=== PATIENT | female | born 1940 | race Caucasian/White ===

== ENCOUNTER 2020-03-19 11:41 | Outpatient (CLI) | payer MEDICARE, SELFPAY ==
[2020-03-19 13:12] LABS: Erythrocyte Sedimentation Rate 26 mm/hr (0-20)
[2020-03-19 13:29] LABS: Rheumatoid Factor Screen Negative (Negative)
[2020-03-21 12:04] LABS: Angiotensin Converting Enzyme 9 U/L (9-67)
[2020-03-22 07:56] LABS: SS-A <1.0; SS-B <1.0; Scleroderma 70 Antibody <1.0
[2020-03-22 11:13] LABS: ANCA Screen Negative (Negative)
== END 2020-03-19 11:42 | disposition home or self-care (01) ==
PROVIDERS: PCP Family Medicine; Visit Provider Internal Medicine Pulmonary Disease
DX: I27.20 Pulmonary hypertension, unspecified (principal)
CPT/HCPCS: 36415; 82164; 85652; 86021; 86038; 86235; 86430

== ENCOUNTER 2020-03-25 10:09 | Outpatient (CLI) | payer MEDICARE, SELFPAY ==
--- NOTE | ~2020-03-25 | CT_ITS ---
EXAMINATION: CTA chest PE protocol EXAM DATE: 03/25/2020 11:19 INDICATION: Shortness of breath. TECHNIQUE: Spiral CTA of the chest (pulmonary arteries) was performed with 100 cc Omnipaque 350 intr avenous contrast injection. Images were acquired during the pulmonary arterial phase. Coronal maxi mum intensity projection 3D-reconstructions were created by the technologist on dedicated workstation . Axial, coronal and sagittal reformatted images were reviewed. The dose-length product (DLP) for t his examination was 239.52 mGy-cm. The exposure was tailored according to patient size (auto mA exp osure control), and iterative reconstruction (ASIR) was used as additional dose reduction technique. There is no prior study for comparison. FINDINGS: There are several nonocclusive small filling defects which are adherent to the prieto of ri ght lower lobe intralobar pulmonary artery extending into couple of segmental vessels. Appearance is consistent with subacute age, partial reabsorption/endothelialization. No corresponding pulmonary inf arction. No evidence of acute pulmonary emboli. No thoracic aortic dissection. The lungs are clear . There are no pleural or pericardial effusions. Tracheobronchial tree is patent. There is no m ediastinal, hilar or axillary lymphadenopathy. There is no pneumothorax. There is cardiomegaly. There is mild coronary arterial calcification, arterial sclerosis. Large gastroesophageal hiatal her sharifa. There is moderate thoracic spondylosis without osteoblastic or osteolytic lesions identified. There are cholecystectomy clips. IMPRESSION: 1. Positive for small subacute right lower lobe pulmonary emboli. 2. Cardiomegaly. 3. Mild emphysema 4. Large hiatal hernia. I spoke with Jessy in Dr. Song Sales M.D.'s office on 03/25/2020 11:40 CDT. Reviewed, dictated and finalized at location B.
[2020-03-25 10:42] LABS: Estimated Glomerular Filt Rate 36
== END 2020-03-25 10:10 | disposition home or self-care (01) ==
LOC: CHSIMG 10:12
PROVIDERS: PCP Family Medicine; Visit Provider Internal Medicine Pulmonary Disease
DX: J43.9 Emphysema, unspecified (principal); R06.02 Shortness of breath
CPT/HCPCS: 71275; Q9965

== ENCOUNTER 2020-04-24 12:13 | Outpatient (CLI) | payer MEDICARE, SELFPAY ==
--- NOTE | ~2020-04-24 | US_ITS ---
EXAMINATION: US venous doppler LE EXAM DATE: 04/24/2020 12:58 INDICATION: Pulmonary embolism. TECHNIQUE: Multiple grayscale, color flow and Doppler images of the right lower extremity deep venous system obtained and reviewed. Correlation is made to CTA pulmonary scan 03/25/2020. FINDINGS: RIGHT SIDE Common femoral: -------- Normal. Profunda femoral: ------- Normal. Femoral: Normal. Popliteal: Normal. Posterior tibial: --------- Normal. Peroneal: Paired, 1 thrombosed. Gastrocnemius: Not visualized. Soleus: Not visualized. Greater saphenous: ----- Normal. Lesser saphenous: ------ Not visualized. IMPRESSION: 1. Positive for right peroneal DVT. Reviewed, dictated and finalized at location A.
== END 2020-04-24 12:14 | disposition home or self-care (01) ==
LOC: CHSIMG 12:15
PROVIDERS: PCP Family Medicine; Visit Provider Internal Medicine Pulmonary Disease
DX: I26.99 Other pulmonary embolism without acute cor pulmonale (principal); M79.89 Other specified soft tissue disorders
CPT/HCPCS: 93970

== ENCOUNTER 2020-07-11 10:47 | Outpatient (CLI) | payer MEDICARE, SELFPAY | END 2020-07-11 10:48 | disposition home or self-care (01) | LOC: CHSLAB 10:49 | PROVIDERS: PCP Family Medicine; Visit Provider Family Medicine | DX: Z79.01 Long term (current) use of anticoagulants (principal) | CPT/HCPCS: 36415; 85610 ==

== ENCOUNTER 2020-07-18 12:14 | Outpatient (RCR) | payer MEDICARE, SELFPAY ==
[2020-04-29 10:43] LABS: INR 3.1; Prothrombin Time 30.5 Seconds (9.64-11.0)
[2020-05-13 10:55] LABS: INR 1.4; Prothrombin Time 14.7 Seconds (9.64-11.0)
[2020-06-13 12:52] LABS: INR 1.7; Prothrombin Time 16.9 Seconds (9.64-11.0)
[2020-06-20 12:52] LABS: INR 1.6; Prothrombin Time 16.5 Seconds (9.64-11.0)
[2020-06-26 10:18] LABS: Prothrombin Time 49.3 Seconds (9.64-11.0)
[2020-07-18 12:41] LABS: INR 3.4; Prothrombin Time 33.8 Seconds (9.64-11.0)
== END 2020-07-28 23:59 | disposition home or self-care (01) ==
LOC: CHSLAB 12:14
PROVIDERS: PCP Family Medicine; Visit Provider Internal Medicine Pulmonary Disease
DX: Z79.01 Long term (current) use of anticoagulants (principal)
CPT/HCPCS: 36415; 85610

== ENCOUNTER 2020-09-12 12:09 | Outpatient (CLI) | payer MEDICARE, SELFPAY ==
--- NOTE | 2020-09-12 12:23 | ECHO_ITS ---
Patient Info Name: Lu Galeano Age: 80 years : 1940 Gender: Female Ht: 59 in Wt: 140 lbs BSA: 1.65 m2 HR: 52 bpm BP: 165 / 65 mmHg Heart Rhythm: Sinus Rhythm Technical Quality: Fair Exam Date: 09/12/2020 12:26 PM Exam Location: [facility] Patient Status: Outpatient Admit Date: 09/12/2020 Staff Ordering Physician: Bunny Perez MD Funeral Pre Need Consultant: Mary Armstrong RDCS Attending Provider: Bunny Perez MD Referring Physician: Ana PARRISH; Exam Type: CA echo doppler color flow Study Info Indications Z86.71 - Personal history of venous thrombosis and embolism I27.2 - Other secondary pulmonary hypertension I25.10 - Atherosclerotic heart disease of [place] coronary artery without angina pectoris Complete two-dimensional, color flow and Doppler transthoracic echocardiogram is performed. Strain analysis performed. History/Risk Factors Hypertension: Yes Dyslipidemia: Yes Peripheral Arterial Disease (PAD): No Myocardial Infarction (ND): Yes Chronic Lung Disease: No Renal Disease: No Congestive Heart Failure (CHF): Hx CHF Cardiomyopathy/LV Systolic Dysfunction: No Diabetes Mellitus: No COPD: No Tobacco Use: Never Cerebrovascular Disease: No DVT Treatment: Warfarin Deep Vein Thrombosis (DVT): Acute Dialysis: None Frailty Scale (CSHA): 3: Managing Well Summary 1. Complete two-dimensional, color flow and Doppler transthoracic echocardiogram is performed. 2. Left ventricular chamber dimension is normal. 3. Ventricular septum is sigmoid shaped. Resting LVOT peak gradient is 7 mmHg and mean is 2 mmHg which are non-obstructive. 4. Left ventricular systolic function is hyperdynamic, estimated at >70%. 5. The left ventricular diastolic function is grade I diastolic dysfunction. 6. E/e' 25 is significantly elevated. 7. Global longitudinal strain is normal at -30.7%. 8. Left atrial chamber dimension is mildly enlarged. 9. There is mild aortic valve sclerosis. 10. The mitral valve has severely calcified annulus. 11. Mild systolic anterior motion of mitral valve leaflet. 12. There is moderate tricuspid valve regurgitation. 13. Severe pulmonary hypertension, estimated pulmonary arterial systolic pressure is 69 mmHg. 14. There is trace pulmonic regurgitation. Left Ventricle E/e' 25 is significantly elevated. Global longitudinal strain is normal at -30.7%. Ventricular septum is sigmoid shaped. Resting LVOT peak gradient is 7 mmHg and mean is 2 mmHg which are non-obstructive. Left ventricular chamber dimension is normal. Left ventricular systolic function is hyperdynamic, estimated at >70%. The left ventricular diastolic function is grade I diastolic dysfunction. Right Ventricle Moderator band in RV is normal variant. Right ventricular chamber dimension is normal. Right ventricular systolic function is normal. Left Atria Left atrial chamber dimension is mildly enlarged. Right Atria Right atrial chamber dimension is normal. Aortic Valve The aortic valve is trileaflet. There is mild aortic valve sclerosis. There is no aortic valve stenosis. There is no aortic valve regurgitation. Pulmonic Valve There is trace pulmonic regurgitation. Mitral Valve The mitral valve has severely calcified annulus. Mild systolic anterior motion of mitral valve leaflet. There is no mitral valve stenosis. There is no mitral valve regurgitation. Tricuspid Valve There is moder
== END 2020-09-12 12:10 | disposition home or self-care (01) ==
LOC: CHSIMG 12:10
PROVIDERS: PCP Family Medicine; Visit Provider Internal Medicine Cardiovascular Disease
DX: I25.10 Atherosclerotic heart disease of native coronary artery without angina pectoris (principal); I27.20 Pulmonary hypertension, unspecified; Z86.711 Personal history of pulmonary embolism
CPT/HCPCS: 93306

== ENCOUNTER 2020-09-24 09:16 | Outpatient (RCR) | payer MEDICARE, SELFPAY ==
[2020-07-25 10:24] LABS: Prothrombin Time 29.9 Seconds (9.64-11.0)
[2020-08-21 10:54] LABS: Prothrombin Time 30.8 Seconds (9.50-12.10)
[2020-09-05 10:38] LABS: INR 2.4; Prothrombin Time 25.1 Seconds (9.50-12.10)
[2020-09-24 09:48] LABS: INR 3.8; Prothrombin Time 39.2 Seconds (9.50-12.10)
== END 2020-10-23 23:59 | disposition home or self-care (01) ==
LOC: CHSLAB 09:16
PROVIDERS: PCP Family Medicine; Visit Provider Internal Medicine Pulmonary Disease
DX: Z79.01 Long term (current) use of anticoagulants (principal)
CPT/HCPCS: 36415; 85610

== ENCOUNTER 2020-12-10 12:58 | Outpatient (CLI) | payer MEDICARE, SELFPAY | END 2020-12-10 12:59 | disposition home or self-care (01) | PROVIDERS: PCP Family Medicine; Visit Provider Specialist | DX: C44.311 Basal cell carcinoma of skin of nose (principal) | CPT/HCPCS: 88305 ==

== ENCOUNTER 2020-12-24 09:33 | Outpatient (RCR) | payer MEDICARE, SELFPAY ==
[2020-10-02 14:56] LABS: INR 3.3; Prothrombin Time 34.5 Seconds (9.50-12.10)
[2020-10-02 15:58] LABS: Thyroid Stimulating Hormone Reflex 1.29 u/IU/mL (0.36-3.74)
[2020-10-11 11:05] LABS: Prothrombin Time 21.7 Seconds (9.64-11.0)
[2020-10-17 10:41] LABS: INR 2.1; Prothrombin Time 22.3 Seconds (9.50-12.10)
[2020-10-24 10:44] LABS: INR 1.8
[2020-10-31 10:38] LABS: INR 2.7; Prothrombin Time 27.7 Seconds (9.50-12.10)
[2020-11-18 10:59] LABS: Prothrombin Time 30.1 Seconds (9.50-12.10)
[2020-11-28 12:17] LABS: INR 2.9; Prothrombin Time 29.7 Seconds (9.50-12.10)
[2020-12-24 09:57] LABS: INR 2.3; Prothrombin Time 23.2 Seconds (9.50-12.10)
== END 2020-12-31 23:59 | disposition home or self-care (01) ==
LOC: CHSLAB 09:33
PROVIDERS: PCP Family Medicine; Visit Provider Family Medicine
DX: I82.432 Acute embolism and thrombosis of left popliteal vein (principal); E03.9 Hypothyroidism, unspecified
CPT/HCPCS: 36415; 84443; 85610

== ENCOUNTER 2021-01-18 09:39 | Outpatient (CLI) | payer MEDICARE, SELFPAY ==
--- NOTE | ~2021-01-18 | MR_ITS ---
EXAMINATION: MR lumbar spine wo con DATE: 01/18/2021 10:20 INDICATION: Low back pain. Spinal stenosis. TECHNIQUE: Magnetic resonance imaging (MRI) of the lumbar spine was performed without intravenous con trast. Sequences included sagittal T2-weighted FSE, sagittal T2-weighted FS FSE, sagittal T1-weighted FSE, and axial T2-weighted FSE. COMPARISON: None FINDINGS: There is 8 degrees dextrocurvature of lumbar spine. There is 3 mm retrolisthesis of L1 on L 2, L2 on L3, and L5 on S1 and 4 mm anterolisthesis of L4 on L5. There is mild chronic anterior wedgin g of T11-L1 vertebral bodies. There is severely decreased disc height at T11-T12, T12-L1, and L1-L2, moderately decreased disc height from L2-L3 through L4-L5, and severely decreased disc height at L5-S 1 with endplate remodeling. The distal spinal cord signal intensity is normal. The conus medullaris i s at L1. There is a 1.6 cm cyst in right kidney. The following disc levels are specifically discussed : L1-L2: The disc is bulging with superimposed right central extrusion. There is severe right and moder ate left facet joint osteoarthritis. There is moderate bilateral neural foraminal stenosis. There is moderate central canal stenosis. L2-L3: The disc is bulging and has an annular fissure. There is severe bilateral facet joint osteoart hritis. There is moderate bilateral neural foraminal stenosis. There is moderate central canal stenos is. L3-L4: The disc is bulging and has an annular fissure. There is severe bilateral facet joint osteoart hritis. There is moderate bilateral neural foraminal stenosis. There is moderate central canal stenos is. L4-L5: The disc is bulging and has an annular fissure. There is severe bilateral facet joint osteoart hritis. There is moderate bilateral neural foraminal stenosis. There is moderate central canal stenos is. L5-S1: The disc is bulging and has an annular fissure. There is severe bilateral facet joint osteoart hritis. There is moderate bilateral neural foraminal stenosis. There is mild central canal stenosis. IMPRESSION: 1. Severe lumbar spondylosis. Reviewed, dictated and finalized at location A.
== END 2021-01-18 09:40 | disposition home or self-care (01) ==
LOC: CHSIMG 09:40
PROVIDERS: PCP Family Medicine; Visit Provider Nurse Practitioner Family
DX: M48.061 Spinal stenosis, lumbar region without neurogenic claudication (principal); M54.5 Low back pain
CPT/HCPCS: 72148

== ENCOUNTER 2021-02-05 15:28 | Outpatient (RCR) | payer MEDICARE, SELFPAY ==
--- NOTE | 2021-02-05 16:55 | PTOPEVAL ---
Thank you for referring Lu Galeano to [facility].? The patient is scheduled to be seen for therapy? __2__x/week for 12 visits. Please review, sign, date and return this plan of care AJ. I agree with and certify that the following plan of care is medically necessary. Referring Physician Date Admitting Provider: Attending Provider: Abiola Justin, GAMBRELER-BC Referring Provider: *PT Outpatient Evaluation Start: 02/05/21 15:43 Freq: Status: Active Protocol: Document 02/05/21 15:43 NILESH (Rec: 02/05/21 16:55 NILESH [id number]) Therapy Assessment Status Assessment Status Assessment Status Evaluation Evaluation Information Problem Diagnosis low back pain Onset 02/06/20 Subjective Information Pt notes a long hx of low back Query Text:As Reported By Patient/ pain. She reports that she Family is having trouble standing for any period of time. She describes her pain going across the low back. She notes that pain can be worst first thing in the morning. She reports that pain can be worse with simply walking around the yard. She reports that her goal is decrease her low back pain. Prior Level of Function Activity Level (Last 3 Months) Occupation retired Hand Dominance Right Activity of Daily Living Ability Independent Indoor/Home Mobility Independent Community Mobility Independent Stairs Ability Independent Functional Cognition (Planning, Shopping Independent , Taking Medications) Cooking Yes Cleaning Yes Laundry Yes Shopping Yes Driving Yes Comments Additional Prior Level of Function Pt. notes that she cannot Comments stand for any substantial time unless she has something to lean on. she reports that she can do grocery shopping as long as she can lean on a cart . Pain Assessment Timing of Pain Assessment Timing of Pain Assessment Pre-Treatment Pain Scale Pain Scale Used Numeric (1 - 10) Self Report Pain Assessment Lower Back Reported Pain Level 7 Pain Description Aching Pain Frequency Continuous Lowest Pain Intensity 3
== END 2021-03-21 23:59 | disposition home or self-care (01) ==
LOC: CHSPT 15:28
PROVIDERS: Visit Provider Nurse Practitioner Family
DX: M54.5 Low back pain (principal); M48.00 Spinal stenosis, site unspecified
CPT/HCPCS: 97014; 97110; 97140; 97161; G0283

== ENCOUNTER 2021-04-23 09:55 | Outpatient (RCR) | payer MEDICARE, SELFPAY ==
[2021-01-23 10:14] LABS: INR 1.9; Prothrombin Time 20.1 Seconds (9.50-12.10)
[2021-02-20 10:25] LABS: INR 4.1; Prothrombin Time 40.6 Seconds (9.50-12.10)
[2021-02-28 11:15] LABS: Prothrombin Time 56.2 Seconds (9.50-12.10)
[2021-02-28 11:22] LABS: INR 5.7
[2021-03-07 11:59] LABS: INR 1.4; Prothrombin Time 14.9 Seconds (9.50-12.10)
[2021-03-19 12:03] LABS: INR 2.9; Prothrombin Time 29.1 Seconds (9.50-12.10)
[2021-03-26 10:01] LABS: INR 2.8; Prothrombin Time 28.6 Seconds (9.50-12.10)
[2021-04-04 10:24] LABS: INR 2.7; Prothrombin Time 27.9 Seconds (9.50-12.10)
[2021-04-18 10:33] LABS: INR 3.7
[2021-04-23 10:38] LABS: Prothrombin Time 30.8 Seconds (9.50-12.10)
== END 2021-04-23 23:59 | disposition home or self-care (01) ==
LOC: CHSLAB 09:55
PROVIDERS: PCP Family Medicine; Visit Provider Family Medicine
DX: Z79.01 Long term (current) use of anticoagulants (principal)
CPT/HCPCS: 36415; 85610

== ENCOUNTER 2021-07-23 09:39 | Outpatient (RCR) | payer MEDICARE, SELFPAY ==
[2021-05-02 10:54] LABS: INR 3.6; Prothrombin Time 36.1 Seconds (9.50-12.10)
[2021-05-14 10:53] LABS: INR 2.5; Prothrombin Time 25.2 Seconds (9.50-12.10)
[2021-05-22 10:02] LABS: INR 3.1; Prothrombin Time 30.9 Seconds (9.50-12.10)
[2021-06-03 12:39] LABS: INR 4.8
[2021-06-12 10:49] LABS: INR 2.7; Prothrombin Time 27.1 Seconds (9.50-12.10)
[2021-06-25 10:01] LABS: INR 2.7; Prothrombin Time 27.4 Seconds (9.50-12.10)
[2021-07-02 12:08] LABS: INR 2.8; Prothrombin Time 28.8 Seconds (9.50-12.10)
[2021-07-23 10:18] LABS: INR 2.8; Prothrombin Time 28.1 Seconds (9.50-12.10)
== END 2021-07-31 23:59 | disposition home or self-care (01) ==
LOC: CHSLAB 09:39
PROVIDERS: PCP Family Medicine; Visit Provider Family Medicine
DX: Z79.01 Long term (current) use of anticoagulants (principal); I82.409 Acute embolism and thrombosis of unspecified deep veins of unspecified lower extremity
CPT/HCPCS: 36415; 85610

== ENCOUNTER 2021-08-26 10:00 | Outpatient (RCR) | payer MEDICARE, SELFPAY ==
[2021-08-07 10:48] LABS: INR 2.8; Prothrombin Time 28.6 Seconds (9.50-12.10)
[2021-08-26 10:34] LABS: INR 2.2; Prothrombin Time 22.2 Seconds (9.50-12.10)
== END 2021-11-05 23:59 | disposition home or self-care (01) ==
LOC: CHSLAB 10:00
PROVIDERS: PCP Family Medicine; Visit Provider Family Medicine
DX: I82.409 Acute embolism and thrombosis of unspecified deep veins of unspecified lower extremity (principal); Z79.01 Long term (current) use of anticoagulants
CPT/HCPCS: 36415; 85610

== ENCOUNTER 2021-09-10 10:29 | Outpatient (CLI) | payer MEDICARE, SELFPAY ==
[2021-09-10 10:41] LABS: Basophils Absolute Auto 0.04 K/mm3 (0.00-0.10); Basophils Percent Auto 0.6 % (0.0-1.0); Eosinophils Absolute Auto 0.35 K/mm3 (0.02-0.50); Hematocrit 35.4 % (35.0-42.0); Hemoglobin 11.5 g/dL (11.7-13.8); Immature Granulocyte Absolute 0.01 K/mm3 (0.00-0.00); Immature Granulocyte Percent A 0.1 % (0.0-0.0); Lymphocytes Absolute Auto 1.11 K/mm3 (1.10-4.50); Lymphocytes Percent Auto 15.7 % (18.0-42.0); Mean Corpuscular HGB Conc 32.5 g/dL (32.0-36.0); Mean Corpuscular Hemoglobin 29.3 pg (27.0-31.0); Mean Corpuscular Volume 90.3 fL (78.0-102.0); Mean Platelet Volume 10.3 fl (9.2-11.8); Monocytes Absolute Auto 0.56 K/mm3 (0.10-0.90); Monocytes Percent Auto 7.9 % (2.0-11.0); Neutrophils Percent Auto 70.7 % (50.0-70.0); Platelet Count Result 251 K/mm3 (150-420); Red Blood Count 3.92 M/mm3 (4.20-5.40); Red Cell Distribution Width 14.6 % (11.6-14.4); White Blood Count 7.1 K/mm3 (4.8-10.8)
[2021-09-10 10:59] LABS: INR 2.6
[2021-09-10 11:40] LABS: Alanine Aminotransferase 14 U/L (14-59); Albumin Level 3.1 g/dL (3.4-5.0); Alkaline Phosphatase 114 U/L (46-116); Anion Gap 8 mmol/L (8-16); Aspartate Amino Transferase 15 U/L (15-37); Bilirubin,Total 0.4 mg/dL (0.00-1.00); Blood Urea Nitrogen 32 mg/dL (7-18); Calcium 8.5 mg/dL (8.5-10.1); Carbon Dioxide 24 mmol/L (21-32); Chloride 110 mmol/L (98-108); Cholesterol 139 mg/dL (0-200); Estimated Glomerular Filt Rate 31; Glucose 96 mg/dL (70-99); HDL Direct 54 mg/dL (40-60); LDL Cholesterol Calculated 61 mg/dL (<130); Osmolality Calculated 300 mOsm/kg (285-295); Potassium 5.5 mmol/L (3.5-5.1); Sodium 142 mmol/L (136-145); Total Protein 6.2 g/dL (6.4-8.2); Triglycerides 120 mg/dL (0-150)
[2021-09-10 11:41] LABS: Thyroid Stimulating Hormone Reflex 1.42 u/IU/mL (0.36-3.74)
== END 2021-09-10 10:30 | disposition home or self-care (01) ==
LOC: CHSLAB 10:31
PROVIDERS: PCP Family Medicine; Visit Provider Family Medicine
DX: I82.409 Acute embolism and thrombosis of unspecified deep veins of unspecified lower extremity (principal); I10 Essential (primary) hypertension; E03.9 Hypothyroidism, unspecified; E78.5 Hyperlipidemia, unspecified
CPT/HCPCS: 36415; 80053; 80061; 84443; 85025; 85610

== ENCOUNTER 2021-09-17 11:48 | Outpatient (CLI) | payer MEDICARE, SELFPAY ==
[2021-09-17 12:19] LABS: INR 2.1; Prothrombin Time 21.9 Seconds (9.50-12.10)
[2021-09-17 13:03] LABS: Alanine Aminotransferase 25 U/L (14-59); Albumin Level 3.2 g/dL (3.4-5.0); Alkaline Phosphatase 112 U/L (46-116); Anion Gap 11 mmol/L (8-16); Aspartate Amino Transferase 15 U/L (15-37); Bilirubin,Total 0.3 mg/dL (0.00-1.00); Blood Urea Nitrogen 37 mg/dL (7-18); Calcium 8.9 mg/dL (8.5-10.1); Carbon Dioxide 23 mmol/L (21-32); Chloride 108 mmol/L (98-108); Estimated Glomerular Filt Rate 26; Glucose 97 mg/dL (70-99); Osmolality Calculated 302 mOsm/kg (285-295); Potassium 5.5 mmol/L (3.5-5.1); Sodium 142 mmol/L (136-145); Thyroid Stimulating Hormone 1.19 uIU/mL (0.36-3.74); Total Protein 6.3 g/dL (6.4-8.2)
[2021-09-19 19:33] LABS: Vitamin D 25 Hydroxy 44 ng/mL (30-100)
== END 2021-09-17 11:49 | disposition home or self-care (01) ==
LOC: CHSLAB 11:49
PROVIDERS: PCP Family Medicine; Visit Provider Nurse Practitioner Family
DX: E87.5 Hyperkalemia (principal); E03.9 Hypothyroidism, unspecified; Z79.01 Long term (current) use of anticoagulants; Z79.899 Other long term (current) drug therapy
CPT/HCPCS: 36415; 80053; 82306; 84439; 84443; 85610

== ENCOUNTER 2021-09-24 10:18 | Outpatient (CLI) | payer MEDICARE, SELFPAY ==
[2021-09-24 10:51] LABS: INR 2.2
[2021-09-24 11:24] LABS: Alanine Aminotransferase 14 U/L (14-59); Albumin Level 3.4 g/dL (3.4-5.0); Alkaline Phosphatase 116 U/L (46-116); Anion Gap 10 mmol/L (8-16); Aspartate Amino Transferase 19 U/L (15-37); Bilirubin,Total 0.4 mg/dL (0.00-1.00); Blood Urea Nitrogen 34 mg/dL (7-18); Calcium 8.7 mg/dL (8.5-10.1); Carbon Dioxide 23 mmol/L (21-32); Chloride 110 mmol/L (98-108); Estimated Glomerular Filt Rate 26; Glucose 99 mg/dL (70-99); Osmolality Calculated 303 mOsm/kg (285-295); Potassium 5.3 mmol/L (3.5-5.1); Sodium 143 mmol/L (136-145); Total Protein 6.4 g/dL (6.4-8.2)
== END 2021-09-24 10:19 | disposition home or self-care (01) ==
PROVIDERS: PCP Family Medicine; Visit Provider Nurse Practitioner Family
DX: Z79.01 Long term (current) use of anticoagulants (principal); I82.409 Acute embolism and thrombosis of unspecified deep veins of unspecified lower extremity
CPT/HCPCS: 36415; 80053; 85610

== ENCOUNTER 2021-09-26 11:12 | Inpatient (IN) | payer MEDICARE, SELFPAY ==
[2021-09-26] VITALS (7 sets, daily range): BP systolic 153–187; BP diastolic 59–71; PULSE 52–66; RESP 16–18; TEMP 35.6–36.8; O2SAT 90–100; BMI 28.7
--- NOTE | ~2021-09-26 | CT_ITS ---
EXAMINATION: CT abdomen pelvis wo con DATE: 09/27/2021 08:39 INDICATION: Low abdominal pain. TECHNIQUE: Computed tomography (CT) of the abdomen and pelvis was performed without intravenous contr ast. Automated exposure control and iterative reconstruction technique were employed. The dose-length product was 715.88 mGy-cm. COMPARISON: CT abdomen and pelvis 06/14/2018 FINDINGS: The visualized portions of the lung bases demonstrate mild atelectasis. There is peripheral septal thickening in the lungs. There are small pleural effusions. Cardiomegaly is noted. There are coronary artery calcifications. No pericardial effusion. There is a large sliding hiatal hernia. The liver and spleen are normal. There are changes of cholecystectomy. The pancreas and adrenal glands ar e normal. There are is cortical thinning of the kidneys. There is a 1.7 cm cyst in right kidney. Ther e is no urolithiasis. There is diverticulosis of the colon without evidence of diverticulitis. There are no dilated loops of bowel. The appendix is normal. There are no pathologically enlarged lymph nod es. There is no free intraperitoneal fluid. Pelvic floor relaxation is noted. There is severe thoraci c and lumbar spondylosis. IMPRESSION: 1. Large sliding hiatal hernia. 2. Pelvic floor relaxation. 3. Small pleural effusions. 4. Peripheral septal thickening in the lungs, consistent with mild pulmonary edema and/or mild chroni c interstitial lung disease. 5. Cardiomegaly. Reviewed, dictated and finalized at location A. ISITIONS ASSISTANT IMPRESSION: 1. Large sliding hiatal hernia. 2. Pelvic floor relaxation. 3. Small pleural effusions. 4. Peripheral septal thickening in the lungs, consistent with mild pulmonary ed danya and/or mild chronic interstitial lung disease. 5. Cardiomegaly.
--- NOTE | ~2021-09-26 | XR_ITS ---
EXAMINATION: XR chest 2V DATE: 09/26/2021 13:27 INDICATION: Dyspnea. TECHNIQUE: Frontal and lateral views of the chest were obtained. COMPARISON: Chest 2 views 10/18/19, chest CT 03/25/2020 FINDINGS: There are airspace opacities in right lower lung zone and left mid and lower lung zones. No pleural effusion or pneumothorax. Cardiomegaly is noted. There is a large hiatal hernia. There are s urgical clips in the abdomen. IMPRESSION: 1. Stable mild airspace opacities in right lower lung zone and left mid and lower lung zones, likely atelectasis/scarring. 2. Cardiomegaly. 3. Large hiatal hernia. Reviewed, dictated and finalized at location A. RINARY LABORATORY DIAGNOSTICIAN IMPRESSION: 1. Stable mild airspace opacities in right lower lung zone and left mid and low er lung zones, likely atelectasis/scarring. 2. Cardiomegaly. 3. Large hiatal hernia.
--- NOTE | 2021-09-26 11:28 | ECG_ITS ---
Measurements Intervals [place] Rate: 53 P: 25 VA: 173 QRS: 24 QRSD: 91 T: 67 QT: 409 QTc: 384 Interpretive Statements SINUS BRADYCARDIA CANNOT RULE OUT SEPTAL INFARCT, AGE INDETERMINATE ABNORMAL ECG Electronically Signed On 09-26-2021 14:55:09 PCI SECURITY CONSULTANT by Phil Gilbert D.O.
[2021-09-26 12:05] LABS: Basophils Absolute Auto 0.02 K/mm3 (0.00-0.10); Basophils Percent Auto 0.2 % (0.0-1.0); Eosinophils Absolute Auto 0.26 K/mm3 (0.02-0.50); Eosinophils Percent Auto 3.2 % (1.0-6.0); Hematocrit 35.8 % (35.0-42.0); Hemoglobin 11.4 g/dL (11.7-13.8); Immature Granulocyte Absolute 0.03 K/mm3 (0.00-0.00); Immature Granulocyte Percent A 0.4 % (0.0-0.0); Lymphocytes Absolute Auto 0.71 K/mm3 (1.10-4.50); Lymphocytes Percent Auto 8.8 % (18.0-42.0); Mean Corpuscular HGB Conc 31.8 g/dL (32.0-36.0); Mean Corpuscular Hemoglobin 29.2 pg (27.0-31.0); Mean Corpuscular Volume 91.8 fL (78.0-102.0); Mean Platelet Volume 10.8 fl (9.2-11.8); Monocytes Absolute Auto 0.52 K/mm3 (0.10-0.90); Monocytes Percent Auto 6.4 % (2.0-11.0); Neutrophils Absolute Auto 6.6 K/mm3 (1.7-7.2); Platelet Count Result 220 K/mm3 (150-420); Red Cell Distribution Width 14.6 % (11.6-14.4); White Blood Count 8.1 K/mm3 (4.8-10.8)
[2021-09-26 12:17] LABS: INR 2.1; Partial Thromboplastin Time 36.4 SEC (23.90-30.70); Prothrombin Time 22.1 Seconds (9.50-12.10)
[2021-09-26 12:21] LABS: D Dimer 0.54 mg/L (0.19-0.50)
--- NOTE | 2021-09-26 12:21 | PC.NURSE ---
Dr. Jose Carlos MILAN made aware of critical lab of D[place] 0.54
[2021-09-26 12:27] LABS: Alanine Aminotransferase 12 U/L (14-59); Albumin Level 3.2 g/dL (3.4-5.0); Alkaline Phosphatase 111 U/L (46-116); Anion Gap 10 mmol/L (8-16); Aspartate Amino Transferase 15 U/L (15-37); Bilirubin,Total 0.5 mg/dL (0.00-1.00); Blood Urea Nitrogen 35 mg/dL (7-18); Calcium 8.6 mg/dL (8.5-10.1); Carbon Dioxide 21 mmol/L (21-32); Chloride 109 mmol/L (98-108); Estimated Glomerular Filt Rate 25; Glucose 102 mg/dL (70-99); NT Pro B Type Natriuretic Pept 1248 pg/mL (0-450); Osmolality Calculated 298 mOsm/kg (285-295); Potassium 5.4 mmol/L (3.5-5.1); Sodium 140 mmol/L (136-145); Total Protein 6.5 g/dL (6.4-8.2)
[2021-09-26 12:45] LABS: SARS-CoV-2 RNA PCR Negative (Negative)
--- NOTE | 2021-09-26 13:43 | ED.SOB ---
HPI - SOB/Dyspnea General Chief Complaint: Abdominal Pain Stated Complaint: upset stomach,shakes Source: patient Mode of arrival: ambulatory Limitations: no limitations History of Present Illness HPI Narrative: this is an 81-year-old female presents with some vague symptoms, weakness with some shortness of breath with exertion no shortness of breath with resting. With no abdominal pain no chest pain no dysuria no flank pain no fever chills no nausea vomiting. Patient with history of lower extremity DVT currently on Coumadin and is therapeutic with an INR of 2.1. Patient with history of hypertension, hypothyroidism and hypertension. MD elicited complaint: shortness of breath Onset (ago): hour(s) Context: occurred during exertion Timing: constant Severity: moderate Exacerbating factors: exertion Related Data Home Medications Medication Instructions Recorded Confirmed aspirin 81 mg tablet,delayed 81 mg PO DAILY 10/18/19 09/26/21 release calcium carbonate 600 mg-vitamin 1 tablet PO BID 10/18/19 09/26/21 D3 20 mcg (800 unit) chewable tablet clonidine HCl 0.1 mg tablet 0.1 mg PO BID tablet 10/18/19 09/26/21 cranberry 400 mg capsule 400 mg PO DAILY 10/18/19 09/26/21 glucosamine-chondroitin 250 mg-200 2 tablet PO TID 10/18/19 09/26/21 mg tablet omega 9-fqj-xfo-fish oil 300 1 cap PO DAILY 10/18/19 09/26/21 mg-1,000 mg capsule omeprazole magnesium 20 mg 20 mg PO DAILY 10/18/19 09/26/21 tablet,delayed release meloxicam 15 mg tablet 15 mg PO DAILY tablet 05/15/21 09/26/21 Allergies Allergy/AdvReac Type Severity Reaction Status Date / Time fentanyl Allergy Intermediate Unknown Verified 09/26/21 11:38 tramadol Allergy Intermediate Unknown Verified 09/26/21 11:38 adhesive Allergy Mild Unknown Verified 09/26/21 11:38 Sulfa (Sulfonamide Allergy Mild unknown Verified 09/26/21 11:38 Antibiotics) Sulfonamides Allergy Intermediate Unknown Uncoded 09/17/21 11:07 Review of Systems Review of Systems: All systems reviewed & are unremarkable except as noted in HPI and below PMFSH Past Medical History Medical History Abnormality of gait and mobility Chronic diarrhea CKD (chronic kidney disease) stage 3, GFR 30-59 ml/min Congestive heart failure (CHF) DVT (deep venous thrombosis) Hyperlipidemia Hypertension Hypothyroidism Left leg weakness Myocardial infarction Osteoarthritis Pulmonary hypertension Surgical History Surgical History History of hysterectomy History of knee replacement Hx laparoscopic cholecystectomy Social History Social History Smoking status: Never smoker Alcohol intake: never Substance use: never Substance use type: does not use Gender identity (if verbalized by the patient): Female Exam Const: General: no acute distress and alert Orientation/consciousness: patient oriented x3 HENMT: Head: normal to inspection Eyes: Conjunctivae: conjunctivae normal Pupils: Equal, round and reactive pupils present EOM: EOMs intact bilaterally Direct Ophthalmoscopy: no photophobia Neck: Neck: normal visual inspection, no lymphadenopathy and no meningeal signs Chest: Chest palpation & inspection: normal inspection of the chest Resp: Effort & Inspection: normal respiratory effort Auscultation: clear to auscultation bilaterally Cardio: Rate: regular rate Rhythm: regular rhythm GI: GI Palp: Yes Soft to palpation Percussion: Yes normal to percussion : General: Yes no CVA tenderness Urinary Catheter: Urinary Catheter: patent and draining Back/Spine/Pelvis: Back: no CVA tenderness Skin: General skin exam: normal color Rashes: no rashes Neuro: General: patient oriented x3 and moves all extremities Extrem: General: normal to inspection and no pedal edema Psych: Mental Status: mental status grossly normal
[2021-09-26 14:07] LABS: Add Urine Microscopic? YES; Appearance Urine Sl Cloudy (Clear); Bilirubin Urine Negative (Negative); Blood Urine Negative (Negative); Color Urine Light Yellow (Yellow); Glucose Urine UA Negative (Negative); Ketones Urine Trace (Negative); Leukocyte Esterase Ur 2+ (Negative); Nitrate Urine Negative (Negative); Protein Urine 3+ (Negative); Specific Grav Ur >= 1.030 (1.010-1.020); Urobilinogen Urine 0.2 mg/dL (0.2-1.0)
[2021-09-26 14:12] LABS: RBC Urine 0-2 /hpf (0-2); Squamous Epithelial Cell Urine Moderate /hpf (Few)
[2021-09-26 14:13] LABS: Bacteria Urine 1+ /hpf
--- NOTE | 2021-09-26 14:35 | ADMGEN ---
This patient, Lu Galeano, was admitted to 2nd Floor Room 226-2 for CHF exacerbation. Patient/family oriented to hospital policies and general routines including ID bracelet, bed and alarms, visiting hours, pain management, procedures, bathroom and other care routines, personal items, smoking policy, room service/diet, and visiting hours. Information on how to activate the Rapid Response Team has been discussed. Patient/Family are encouraged to report perceived risks to care and to ask questions if they do not understand what they are told or what they should do.
[2021-09-26] MEDS: CALCIUM/VITAMIN D 250 MG TABLET 2 TABLET PO (17:30)
[2021-09-26] MEDS: cloNIDine HCL 0.1 MG TABLET PO (17:30)
[2021-09-26] MEDS: cloNIDine HCL 0.2 MG TABLET PO (21:39)
[2021-09-26] MEDS: ENOXAPARIN 60 MG/0.6 ML SYRINGE SUB-Q (21:39)
--- NOTE | 2021-09-27 02:11 | PC.NURSE ---
Pt rounding completed. Pt is sleeping on her back with the call light within reach, night light on, and bed in the lowest position.
--- NOTE | 2021-09-27 04:59 | PC.NURSE ---
Pt rounding complete. Pt is sleeping on her right side with the call light within reach.
[2021-09-27] MEDS: LEVOTHYROXINE SODIUM 25 MCG TABLET PO (06:07)
[2021-09-27 06:10] LABS: Basophils Absolute Auto 0.03 K/mm3 (0.00-0.10); Basophils Percent Auto 0.5 % (0.0-1.0); Eosinophils Absolute Auto 0.34 K/mm3 (0.02-0.50); Eosinophils Percent Auto 5.5 % (1.0-6.0); Hematocrit 32.8 % (35.0-42.0); Hemoglobin 10.5 g/dL (11.7-13.8); Immature Granulocyte Absolute 0.02 K/mm3 (0.00-0.00); Immature Granulocyte Percent A 0.3 % (0.0-0.0); Lymphocytes Absolute Auto 1.17 K/mm3 (1.10-4.50); Lymphocytes Percent Auto 18.9 % (18.0-42.0); Mean Corpuscular Hemoglobin 29.3 pg (27.0-31.0); Mean Corpuscular Volume 91.6 fL (78.0-102.0); Mean Platelet Volume 11.2 fl (9.2-11.8); Monocytes Absolute Auto 0.51 K/mm3 (0.10-0.90); Monocytes Percent Auto 8.2 % (2.0-11.0); Neutrophils Absolute Auto 4.1 K/mm3 (1.7-7.2); Neutrophils Percent Auto 66.6 % (50.0-70.0); Platelet Count Result 196 K/mm3 (150-420); Red Blood Count 3.58 M/mm3 (4.20-5.40); Red Cell Distribution Width 14.6 % (11.6-14.4); White Blood Count 6.2 K/mm3 (4.8-10.8)
[2021-09-27 06:16] LABS: INR 2.5; Prothrombin Time 25.9 Seconds (9.50-12.10)
[2021-09-27 06:22] LABS: Alanine Aminotransferase 10 U/L (14-59); Albumin Level 2.8 g/dL (3.4-5.0); Alkaline Phosphatase 97 U/L (46-116); Anion Gap 8 mmol/L (8-16); Aspartate Amino Transferase 15 U/L (15-37); Bilirubin,Total 0.3 mg/dL (0.00-1.00); Blood Urea Nitrogen 31 mg/dL (7-18); Calcium 8.4 mg/dL (8.5-10.1); Carbon Dioxide 21 mmol/L (21-32); Chloride 111 mmol/L (98-108); Estimated Glomerular Filt Rate 32; Glucose 86 mg/dL (70-99); Osmolality Calculated 295 mOsm/kg (285-295); Potassium 5.8 mmol/L (3.5-5.1); Sodium 140 mmol/L (136-145); Total Protein 5.8 g/dL (6.4-8.2)
[2021-09-27 06:43] LABS: NT Pro B Type Natriuretic Pept 1241 pg/mL (0-450)
[2021-09-27 08:00] VITALS: BP 188/84; PULSE 67; RESP 18; TEMP 36.7; O2SAT 95
[2021-09-27] MEDS: ACIDOPHILUS/BULGARICUS CHEWABLE TABLET 1 TABLET PO (09:30)
[2021-09-27] MEDS: CALCIUM/VITAMIN D 250 MG TABLET 2 TABLET PO (09:30)
[2021-09-27] MEDS: ASPIRIN 81 MG ENTERIC TABLET PO (09:31)
[2021-09-27] MEDS: cloNIDine HCL 0.2 MG TABLET PO (09:32)
[2021-09-27 09:33] VITALS: PULSE 70
[2021-09-27] MEDS: METOPROLOL SUCCINATE EXT REL 25 MG TABCR 12.5 MG PO (09:33)
[2021-09-27] MEDS: ATORVASTATIN 10 MG TABLET 20 MG PO (09:33)
[2021-09-27] MEDS: amLODIPine BESYLATE 5 MG TABLET PO (09:34)
[2021-09-27] MEDS: PANTOPRAZOLE 40 MG TABLET PO (09:34)
--- NOTE | 2021-09-27 10:18 | PM.IMHP ---
H&P: HPI History of Present Illness Date/Time: 09/27/21 10:18 this is a 81-year-old female who presented to urgent care with complaints of weakness, and abdominal discomfort. Patient has a past medical history of chronic diarrhea, congestive heart failure, CKD, DVT, PE, hyperlipidemia, hypertension, hypothyroidism, left leg weakness, [place], osteoarthritis and pulmonary hypertension. According to patient for me 1 week she has been having discomfort to her abdominal area she is unable to describe the discomfort in his patient notes that I'm sick but will not go into details of her sickness. Patient is anxious to discharge home. Patient also notes that she has a history of DVT and PE. According to patient Dr. Sales was completing PFT on her when her CTA test return back positive for PE at that time her PFT was discontinued. Patient is currently on warfarin 2.0 daily. Vital signs 98.2, 70, 17, 90% on room air, 155/59, WBCs 8.1, hemoglobin 11.4, hematocrit 35.8, platelets 220, INR 2.1, D-dimer 0.54, sodium 140, potassium 5.4, BUN 35, creatinine 1.93, glucose 102, ALT 12, AST 15, troponin 8.0, BNP 1248, Covid negative. The patient denies SOB, CP, palpitation, extremity numbness, lightheadedness, dizziness, constipation, diarrhea, chills, or fever. <GERI Galeano - Last Filed: 09/27/21 11:03> Chief Complaint: Abdomen discomfort <GERI Galeano - Last Filed: 09/27/21 11:03> Review of Systems Review of Systems: A 14 organ system Review of Systems was performed and pertinent positives included in the HPI, otherwise remaining ROS is negative. <GERI Galeano - Last Filed: 09/27/21 11:03> [facility] Past Medical History Medical History: Medical History Abnormality of gait and mobility Chronic diarrhea CKD (chronic kidney disease) stage 3, GFR 30-59 ml/min Congestive heart failure (CHF) DVT (deep venous thrombosis) Hyperlipidemia Hypertension Hypothyroidism Left leg weakness Myocardial infarction Osteoarthritis Pulmonary hypertension <GERI Galeano - Last Filed: 09/27/21 11:03> Surgical History Surgical History: Surgical History History of hysterectomy History of knee replacement Hx laparoscopic cholecystectomy <GERI Galeano - Last Filed: 09/27/21 11:03> Social History Social History: Social History Smoking status: Never smoker Alcohol intake: never Substance use: never Substance use type: does not use Gender identity (if verbalized by the patient): Female Spiritual care concerns: No <GERI Galeano - Last Filed: 09/27/21 11:03> Meds Home Medications and Allergies Home medications: Home Medications Medication Instructions Recorded Confirmed Type aspirin 81 mg tablet,delayed 81 mg PO DAILY 10/18/19 09/26/21 History release calcium carbonate 600 mg-vitamin 1 tablet PO BID 10/18/19 09/26/21 History D3 20 mcg (800 unit) chewable tablet clonidine HCl 0.1 mg tablet 0.1 mg PO BID tablet 10/18/19 09/26/21 History cranberry 400 mg capsule 400 mg PO DAILY 10/18/19 09/26/21 History glucosamine-chondroitin 250 mg-200 2 tablet PO TID 10/18/19 09/26/21 History mg tablet omega 3-wwo-hsn-fish oil 300 1 cap PO DAILY 10/18/19 09/26/21 History mg-1,000 mg capsule omeprazole magnesium 20 mg 20 mg PO DAILY 10/18/19 09/26/21 History tablet,delayed release atorvastatin 20 mg tablet 20 mg PO DAILY #90 tablet 06/13/20 09/26/21 Rx amlodipine 5 mg tablet 5 mg PO DAILY #90 tablet 11/18/20 09/26/21 Rx Lactobac no.2-Bifidobac no.1-S. 1 cap PO DAILY #30 cap 05/15/21 09/26/21 Rx thermo 112.5 billion cell capsule meloxicam 15 mg tablet 15 mg PO DAILY tablet 05/15/21 09/26/21 History metoprolol succinate 25 mg 12.5 mg PO DAILY #90 tablet 07/30/21 09/26/21 Rx tablet,extended
--- NOTE | 2021-09-27 14:37 | PC.NURSE ---
Patient concerned that she needs dc to home, states that she needs to leave before bad weather is coming, no one is doing anything for her, advised that her VQ scan will be tomorrow due to not having the CT chest today due to her lab work, states needs to leave, fire extinguisher charger notified, to call doctor to let him know.
--- NOTE | 2021-09-27 14:45 | PC.NURSE ---
Spouse contacted regarding patient wishes to go home, states will wait to come and get her after ER doctor comes to speak with her.
[2021-09-27 15:14] VITALS: BP 174/64; PULSE 62; RESP 18; TEMP 36.4; O2SAT 95
[2021-09-27] MEDS: WARFARIN (*PBKC) 2 MG TABLET PO (15:48)
--- NOTE | 2021-09-27 15:50 | PC.NURSE ---
both iv sites removed, pt aware she is to contact her pcp for pe care and tx
--- NOTE | 2021-09-27 15:57 | PC.NURSE ---
dr has been up to speak with pt about risks of leaving [facility], advises she stay for another night, pt understands and has decided to go home, fernando called to pick her up, pt has clothing on, glasses and hearing aids in glass case, pt has signed [facility] paperwork
--- NOTE | 2021-09-30 13:31 | PC.NURSE ---
pt's primary physician, dr. romano, notified of preliminary blood culture results.
== END 2021-09-27 15:58 | disposition left against medical advice (07) | DRG 948 ==
LOC: CHSED 13:50 → CHS2ND 14:21
PROVIDERS: Admitting Provider Emergency Medicine; Emergency Provider Emergency Medicine; PCP Family Medicine; Visit Provider Emergency Medicine
DX: Z86.718 Personal history of other venous thrombosis and embolism (principal); Z20.822 Contact with and (suspected) exposure to COVID-19; Z79.01 Long term (current) use of anticoagulants; M19.90 Unspecified osteoarthritis, unspecified site; I13.0 Hypertensive heart and chronic kidney disease with heart failure and stage 1 through stage 4 chronic kidney disease, or unspecified chronic kidney disease; N39.0 Urinary tract infection, site not specified; N18.30 Chronic kidney disease, stage 3 unspecified; I50.9 Heart failure, unspecified; E87.5 Hyperkalemia; I25.2 Old myocardial infarction; I27.20 Pulmonary hypertension, unspecified; Z96.659 Presence of unspecified artificial knee joint; R79.89 Other specified abnormal findings of blood chemistry; E78.5 Hyperlipidemia, unspecified; E03.9 Hypothyroidism, unspecified; K52.9 Noninfective gastroenteritis and colitis, unspecified; R10.9 Unspecified abdominal pain; R53.1 Weakness; Z86.711 Personal history of pulmonary embolism; R13.0 Aphagia; I20.9 Angina pectoris, unspecified
CPT/HCPCS: 36415; 71046; 74176; 80053; 81001; 83880; 84484; 85025; 85380; 85610; 85730; 87040; 87147; 87186; 93005; 97161; 99285; A9270; C9803; J0696; J1650; U0003; U0005

== ENCOUNTER 2021-09-30 14:53 | Outpatient (CLI) | payer MEDICARE, SELFPAY ==
[2021-09-30 15:24] LABS: Occult Blood Negative (Negative)
[2021-09-30 15:59] LABS: Alanine Aminotransferase 18 U/L (14-59); Albumin Level 3.4 g/dL (3.4-5.0); Alkaline Phosphatase 111 U/L (46-116); Anion Gap 13 mmol/L (8-16); Aspartate Amino Transferase 19 U/L (15-37); Bilirubin,Total 0.2 mg/dL (0.00-1.00); Blood Urea Nitrogen 30 mg/dL (7-18); Calcium 8.9 mg/dL (8.5-10.1); Carbon Dioxide 24 mmol/L (21-32); Chloride 107 mmol/L (98-108); Estimated Glomerular Filt Rate 21; Glucose 94 mg/dL (70-99); Osmolality Calculated 304 mOsm/kg (285-295); Potassium 5.4 mmol/L (3.5-5.1); Sodium 144 mmol/L (136-145); Total Protein 6.5 g/dL (6.4-8.2)
== END 2021-09-30 14:54 | disposition home or self-care (01) ==
LOC: CHSLAB 14:56
PROVIDERS: PCP Family Medicine; Visit Provider Family Medicine
DX: K52.9 Noninfective gastroenteritis and colitis, unspecified (principal)
CPT/HCPCS: 36415; 80053; 82272

== ENCOUNTER 2021-10-01 10:37 | Outpatient (NON) | payer MEDICARE, SELFPAY | END 2021-10-01 10:38 | disposition home or self-care (01) | LOC: CHSLAB 10:40 | PROVIDERS: Visit Provider Family Medicine | DX: K52.9 Noninfective gastroenteritis and colitis, unspecified (principal) | CPT/HCPCS: 87177; 87209; 87324 ==

== ENCOUNTER 2021-10-03 12:12 | Outpatient (CLI) | payer MEDICARE, SELFPAY ==
--- NOTE | 2021-10-03 12:30 | ECHO_ITS ---
Patient Info Name: Lu Galeano Age: 81 years : 1940 Gender: Female Ht: 59 in Wt: 141 lbs BSA: 1.65 m2 HR: 59 bpm BP: 171 / 57 mmHg Technical Quality: Fair Exam Date: 10/03/2021 1:19 PM Exam Location: [facility] Patient Status: Outpatient Admit Date: 10/03/2021 Staff Ordering Physician: Stanislav Cook DO Forest Science Professor: Astrid Reyes Attending Provider: Stanislav Cook DO Referring Physician: Joey [place]; Exam Type: CA echo doppler color flow Study Info Indications I50.9 - Heart failure, unspecified Complete two-dimensional, color flow and Doppler transthoracic echocardiogram is performed. Strain analysis performed. History/Risk Factors Hypertension: Yes Dyslipidemia: Yes Peripheral Arterial Disease (PAD): No Myocardial Infarction (MT): Yes Chronic Lung Disease: No Renal Disease: No Congestive Heart Failure (CHF): Hx CHF Cardiomyopathy/LV Systolic Dysfunction: No Diabetes Mellitus: No COPD: No Tobacco Use: Never Cerebrovascular Disease: No DVT Treatment: Warfarin Deep Vein Thrombosis (DVT): Acute Dialysis: None Frailty Scale (CSHA): 3: Managing Well Summary 1. Complete two-dimensional, color flow and Doppler transthoracic echocardiogram is performed. 2. Left ventricular chamber dimension is normal. 3. Ventricular septum is moderately sigmoid shaped. No LVOT obstruction. 4. Left ventricular systolic function is normal, estimated at 60-65%. 5. There is mildly increased left ventricular wall thickness. 6. The left ventricular diastolic function is grade I diastolic dysfunction. 7. E/e' 26 is elevated. 8. Global longitudinal strain is normal at -20.6%. 9. Left atrial chamber dimension is mildly enlarged. 10. There is moderate aortic valve sclerosis. 11. There is mild aortic valve regurgitation. 12. There is very mild aortic valve stenosis with a peak velocity of 166 cm/s, mean gradient of 6 mmHg, and aortic valve area of 2.1 cm2. 13. The mitral valve has severely calcified annulus. 14. Non-obstructive systolic anterior motion of the mitral leaflet. 15. There is trace tricuspid valve regurgitation. 16. Moderate pulmonary hypertension, estimated pulmonary arterial systolic pressure is 56 mmHg. Left Ventricle E/e' 26 is elevated. Global longitudinal strain is normal at -20.6%. Ventricular septum is moderately sigmoid shaped. No LVOT obstruction. Left ventricular chamber dimension is normal. Left ventricular systolic function is normal, estimated at 60-65%. There is mildly increased left ventricular wall thickness. The left ventricular diastolic function is grade I diastolic dysfunction. Right Ventricle Right ventricular systolic function is normal and with normal TAPSE 2.0 cm. Right ventricular chamber dimension is normal. Left Atria Left atrial chamber dimension is mildly enlarged. Right Atria Right atrial chamber dimension is normal. Aortic Valve There is very mild aortic valve stenosis with a peak velocity of 166 cm/s, mean gradient of 6 mmHg, and aortic valve area of 2.1 cm2. The aortic valve is trileaflet. There is moderate aortic valve sclerosis. There is mild aortic valve regurgitation. Pulmonic Valve There is no pulmonic regurgitation. Mitral Valve The mitral valve has severely calcified annulus. Non-obstructive systolic anterior motion of the mitral leaflet. There is no mitral valve stenosis. There is no mitral valve regurgitation. Tricuspid
[2021-10-03 13:02] LABS: Occult Blood Negative (Negative)
[2021-10-10 22:28] LABS: Calprotectin, Stool 44 mcg/g
== END 2021-10-03 12:13 | disposition home or self-care (01) ==
PROVIDERS: PCP Family Medicine; Visit Provider Family Medicine
DX: K52.9 Noninfective gastroenteritis and colitis, unspecified (principal); I50.9 Heart failure, unspecified
CPT/HCPCS: 83993; 87177; 87209; 93306

== ENCOUNTER 2021-10-22 09:48 | Outpatient (CLI) | payer MEDICARE, SELFPAY ==
[2021-10-22 10:39] LABS: INR 2.4; Prothrombin Time 24.3 Seconds (9.50-12.10)
[2021-10-22 10:52] LABS: Anion Gap 11 mmol/L (8-16); Blood Urea Nitrogen 39 mg/dL (7-18); Calcium 8.8 mg/dL (8.5-10.1); Carbon Dioxide 26 mmol/L (21-32); Chloride 102 mmol/L (98-108); Estimated Glomerular Filt Rate 24; Glucose 103 mg/dL (70-99); Osmolality Calculated 297 mOsm/kg (285-295); Potassium 4.1 mmol/L (3.5-5.1); Sodium 139 mmol/L (136-145)
== END 2021-10-22 09:49 | disposition home or self-care (01) ==
LOC: CHSLAB 09:52
PROVIDERS: PCP Family Medicine
DX: N18.4 Chronic kidney disease, stage 4 (severe) (principal); Z79.01 Long term (current) use of anticoagulants; I82.409 Acute embolism and thrombosis of unspecified deep veins of unspecified lower extremity
CPT/HCPCS: 36415; 80048; 85610

== ENCOUNTER 2021-11-19 09:23 | Outpatient (CLI) | payer MEDICARE, SELFPAY ==
--- NOTE | ~2021-11-19 | US_ITS ---
EXAMINATION: US retroperitoneal comp DATE: 11/19/2021 09:52 INDICATION: Stage IV chronic kidney disease TECHNIQUE: Multiple ultrasound grayscale images of the kidneys were obtained. COMPARISON: None. FINDINGS: The right kidney measures 8.6 x 4.0 x 4.3 cm. The left kidney measures 8.5 x 4.4 x 3.9 cm. Diffuse in creased echogenicity throughout both kidneys consistent with medical renal disease. Bilateral anechoi c renal cysts measuring 1.4 cm the upper pole of the right kidney and 1.1 cm the mid left kidney. The re is no hydronephrosis in either kidney. No stones identified. The bladder is not visualized and li brown decompressed and obscured by shadowing bowel gas.. IMPRESSION: 1. Bilateral diffuse increased cortical echogenicity consistent with medical renal disease. No hydro nephrosis. Reviewed, dictated and finalized at location A. T MAINTENANCE MANAGER IMPRESSION: 1. Bilateral diffuse increased cortical echogenicity consistent with medical r enal disease. No hydronephrosis.
[2021-11-19 09:38] LABS: Hematocrit 36.9 % (35.0-42.0); Hemoglobin 11.7 g/dL (11.7-13.8); Mean Corpuscular HGB Conc 31.7 g/dL (32.0-36.0); Mean Corpuscular Hemoglobin 28.3 pg (27.0-31.0); Mean Corpuscular Volume 89.3 fL (78.0-102.0); Mean Platelet Volume 10.4 fl (9.2-11.8); Platelet Count Result 247 K/mm3 (150-420); Red Blood Count 4.13 M/mm3 (4.20-5.40); Red Cell Distribution Width 13.7 % (11.6-14.4); White Blood Count 7.8 K/mm3 (4.8-10.8)
[2021-11-19 10:01] LABS: INR 1.8; Prothrombin Time 18.7 Seconds (9.50-12.10)
[2021-11-19 10:08] LABS: Anion Gap 12 mmol/L (8-16); Blood Urea Nitrogen 35 mg/dL (7-18); Calcium 8.7 mg/dL (8.5-10.1); Carbon Dioxide 25 mmol/L (21-32); Chloride 104 mmol/L (98-108); Estimated Glomerular Filt Rate 26; Glucose 98 mg/dL (70-99); Osmolality Calculated 300 mOsm/kg (285-295); Potassium 4.4 mmol/L (3.5-5.1); Sodium 141 mmol/L (136-145); Uric Acid 8.6 mg/dL (2.6-6.0)
[2021-11-19 11:20] LABS: Creatinine Urine 89.04 mg/dL (40-278); Total Protein Urine Random 177.2 mg/dL (0.0-11.9); Ur Ttl Prot Creatinine Ratio 1.99 mg/mg (0-0.20)
[2021-11-19 11:54] LABS: MALB Creatinine Ratio 449.2 mg/g (0-30); Microalbumin Urine Random > 400.0 mg/L
[2021-11-21 14:34] LABS: Vitamin D 25 Hydroxy 47 ng/mL (30-100)
== END 2021-11-19 09:24 | disposition home or self-care (01) ==
LOC: CHSIMG 09:26
PROVIDERS: PCP Nurse Practitioner Family
DX: N18.4 Chronic kidney disease, stage 4 (severe) (principal); Z79.01 Long term (current) use of anticoagulants; I82.409 Acute embolism and thrombosis of unspecified deep veins of unspecified lower extremity
CPT/HCPCS: 36415; 76770; 80048; 81002; 82043; 82306; 82570; 84156; 84550; 85027; 85610

== ENCOUNTER 2021-12-25 15:26 | Emergency (ER) | payer MEDICARE, SELFPAY ==
--- NOTE | 2021-12-25 16:18 | ED.WOUNDLAC ---
HPI - Wound/Laceration General Chief Complaint: Animal Bite Stated Complaint: cut on hand Time Seen by Provider: 12/25/21 16:18 Source: patient and family Mode of arrival: ambulatory Limitations: no limitations History of Present Illness HPI narrative: this is an 81-year-old female with a recent dog bite, puncture wound to her right wrist area that occurred earlier today patient is currently on Coumadin and had her INR performed earlier today which is 4.3, the wound is continuously oozing, bleeding. Patient dog bite is her pet dog and currently there is little puncture wound on the right wrist area. Otherwise the patient is not up-to-date with her tetanus there is no fever chills. Onset (ago): hour(s) Extremity Location: Right: wrist ( Puncture wound) Place: home Patient tetanus UTD: No Context: accidental Related Data Home Medications Medication Instructions Recorded Confirmed aspirin 81 mg tablet,delayed 81 mg PO DAILY 10/18/19 12/25/21 release calcium carbonate 600 mg-vitamin 1 tablet PO BID 10/18/19 12/25/21 D3 20 mcg (800 unit) chewable tablet omeprazole magnesium 20 mg 20 mg PO DAILY 10/18/19 12/25/21 tablet,delayed release Allergies Allergy/AdvReac Type Severity Reaction Status Date / Time fentanyl Allergy Intermediate Unknown Verified 12/25/21 16:23 tramadol Allergy Intermediate Unknown Verified 12/25/21 16:23 adhesive Allergy Mild Unknown Verified 12/25/21 16:23 Sulfa (Sulfonamide Allergy Mild unknown Verified 12/25/21 16:23 Antibiotics) Sulfonamides Allergy Intermediate Unknown Uncoded 12/25/21 16:23 Review of Systems Review of Systems: All systems reviewed & are unremarkable except as noted in HPI and below PMFSH Past Medical History Medical History Abnormality of gait and mobility Chronic diarrhea CKD (chronic kidney disease) stage 3, GFR 30-59 ml/min Congestive heart failure (CHF) DVT (deep venous thrombosis) Hyperlipidemia Hypertension Hypothyroidism Left leg weakness Myocardial infarction Osteoarthritis Pulmonary hypertension Surgical History Surgical History History of hysterectomy History of knee replacement Hx laparoscopic cholecystectomy Social History Social History Alcohol intake: never Substance use: never Substance use type: does not use Gender identity (if verbalized by the patient): Female Spiritual care concerns: No Exam Const: General: no acute distress Orientation/consciousness: patient oriented x3 HENMT: Head: normal to inspection Eyes: Conjunctivae: conjunctivae normal Pupils: Equal, round and reactive pupils present Neck: Neck: normal visual inspection, no lymphadenopathy and no meningeal signs Chest: Chest palpation & inspection: normal inspection of the chest Resp: Effort & Inspection: normal respiratory effort Auscultation: clear to auscultation bilaterally Cardio: Rate: regular rate Rhythm: regular rhythm GI: GI Palp: Yes Soft to palpation Percussion: Yes normal to percussion Back/Spine/Pelvis: Back: no CVA tenderness Skin: Other: Puncture wound that is oozing blood the right wrist area Neuro: General: patient oriented x3 and moves all extremities Course Course Emergency Course: patient with some right wrist puncture wound from a dog bite, wrapped and dressed and pressure applied, the patient had an INR performed in the lab and showed INR 4.3, will update patient with her tetanus and will give 10mg of subQ vitamin K. Puncture wound was wrapped and dressed and currently a do reassessment the bleeding has subsided. Critical Care Time Critical Care Time Critical Care Time: No Discharge Plan Discharge Clinical Impression: Puncture wound, Elevated INR Dog bite Qualifiers: Encounter type: initial encounter Qualified Code(s): W54.0XXA - Bitt
[2021-12-25 16:28] VITALS: BP 186/77; PULSE 89; RESP 16; TEMP 36.4; O2SAT 93
--- NOTE | 2021-12-25 16:36 | PC.NURSE ---
PCP's office called and stated that they have not been able to reach pt to inform her that her INR level was high per today's blood work. Ana at [facility] requests that pt be instructed to hold her warfarin today and then decrease to 2mg daily until her labs are rechecked next week. Ana informed that pt will be receiving vitamin K injection and tetanus booster in ER today. Pt instructed to follow up with clinic tomorrow.
[2021-12-25] MEDS: PHYTONADIONE INJ 10 MG/ML AMP SUB-Q (16:58)
[2021-12-25] MEDS: TETANUS,DIPHTHERIA,AC PERTUSSIS ADULT 0.5 ML (ADACEL) IM (17:02)
[2021-12-25 17:29] VITALS: BP 189/87; PULSE 87; RESP 20; TEMP 36.4; O2SAT 98
--- NOTE | 2021-12-25 17:30 | PC.NURSE ---
Bite report for [facility] filled out and faxed.
== END 2021-12-25 17:31 | disposition home or self-care (01) ==
PROVIDERS: Emergency Provider Emergency Medicine; PCP Family Medicine
DX: S61.531A Puncture wound without foreign body of right wrist, initial encounter (principal); W54.0XXA Bitten by dog, initial encounter; I12.9 Hypertensive chronic kidney disease with stage 1 through stage 4 chronic kidney disease, or unspecified chronic kidney disease; N18.30 Chronic kidney disease, stage 3 unspecified; I50.9 Heart failure, unspecified; E78.5 Hyperlipidemia, unspecified; E03.9 Hypothyroidism, unspecified; Z86.718 Personal history of other venous thrombosis and embolism
CPT/HCPCS: 90471; 90715; 96372; 99283; J3430

== ENCOUNTER 2022-02-18 08:41 | Outpatient (RCR) | payer MEDICARE, SELFPAY ==
[2021-12-04 10:24] LABS: INR 1.7; Prothrombin Time 17.7 Seconds (9.50-12.10)
[2021-12-12 10:49] LABS: Prothrombin Time 52.9 Seconds (9.50-12.10)
[2021-12-12 10:52] LABS: INR 5.4
[2021-12-15 10:09] LABS: INR 3.1; Prothrombin Time 30.9 Seconds (9.50-12.10)
[2021-12-25 10:32] LABS: INR 4.3; Prothrombin Time 42.4 Seconds (9.50-12.10)
[2022-01-13 11:24] LABS: Prothrombin Time 20.8 Seconds (9.50-12.10)
[2022-01-21 10:09] LABS: INR 1.7; Prothrombin Time 17.7 Seconds (9.50-12.10)
[2022-02-18 09:12] LABS: INR 2.4; Prothrombin Time 24.5 Seconds (9.50-12.10)
== END 2022-03-04 23:59 | disposition home or self-care (01) ==
LOC: CHSLAB 08:41
PROVIDERS: PCP Family Medicine; Visit Provider Family Medicine
DX: Z79.01 Long term (current) use of anticoagulants (principal); I82.409 Acute embolism and thrombosis of unspecified deep veins of unspecified lower extremity
CPT/HCPCS: 36415; 85610

== ENCOUNTER 2022-04-10 13:20 | Outpatient (CLI) | payer MEDICARE, SELFPAY ==
--- NOTE | ~2022-04-10 | XR_ITS ---
XR chest 2V 04/10/2022 14:04 Indication: Pulmonary hypertension. Procedure: 2 view chest Comparison: Comparison to multiple prior studies sequentially, with oldest reviewed study dated 10/18. Findings: Stable bibasilar infiltrates overlying the costophrenic recesses, likely atelectasis/scarri ng. Large hiatal hernia with air-fluid level. No acute focal pneumonia, edema or effusion. No pneumot horax. No acute osseous abnormality. There are degenerative changes of the acromioclavicular joints. There is cardiomegaly. Impression: 1: No acute cardiopulmonary disease. 2: Chronic bibasilar infiltrates peripherally, likely atelectasis/scarring. 3: Large hiatal hernia with air-fluid level. Reviewed, dictated and finalized at location A. Impression: 1: No acute cardiopulmonary disease. 2: Chronic bibasilar infiltrates peripherally, likely atelectasis/scarring. 3: Large hiatal hernia with air-fluid level.
--- NOTE | ~2022-04-10 | NM_ITS ---
EXAMINATION: NM pulmonary perfusion DATE: 04/10/2022 13:52 INDICATION: Pulmonary hypertension. TECHNIQUE: 5.1 mCi Tc-99m MAA was administered intravenously for perfusion images. Scintigraphic yolis ges of the chest were obtained. COMPARISON: Chest 2 views 04/10/2022, chest CT 03/25/2020 FINDINGS: Perfusion images show small defects in the lower lobes. There is a moderate-sized defect in anterior segment right upper lobe. IMPRESSION: 1. Nondiagnostic (intermediate probability for pulmonary embolism). Reviewed, dictated and finalized at location A.
== END 2022-04-10 13:21 | disposition home or self-care (01) ==
LOC: ANHIMG 13:25
PROVIDERS: PCP Family Medicine; Visit Provider Internal Medicine Pulmonary Disease
DX: I27.20 Pulmonary hypertension, unspecified (principal); R91.8 Other nonspecific abnormal finding of lung field; K44.9 Diaphragmatic hernia without obstruction or gangrene
CPT/HCPCS: 71046; 78580; A9540

== ENCOUNTER 2022-04-22 09:12 | Emergency (ER) | payer MEDICARE, SELFPAY ==
--- NOTE | ~2022-04-22 | CT_ITS ---
EXAMINATION: CT brain wo con DATE: 04/22/2022 10:22 INDICATION: Head injury post fall TECHNIQUE: Computed tomography (CT) of the head was performed without intravenous contrast. Sagittal and coronal reconstructions were performed. The mA was adjusted according to patient size. Iterative reconstruction technique was employed. The dose-length product was 529.67 mGy-cm. COMPARISON: head CT dated 01/12/18 FINDINGS: No fracture. No acute intracranial hemorrhage, acute infarction or abnormal extra axial fluid collect ion. 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 There is mild scatt ered white matter hypoattenuation consistent with chronic small vessel ischemic disease. Ventricles are normal and symmetric. No mass/mass effect. Mild mucosal thickening the bilateral ethmoid sinuses. The orbits and mastoid air cells are normal. Intracranial calcified cerebral atherosclerosis is note d. IMPRESSION: 1. No fracture or acute intracranial process. 2. 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 Reviewed, dictated and finalized at location A. IMPRESSION: 1. No fracture or acute intracranial process. 2. 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
--- NOTE | ~2022-04-22 | XR_ITS ---
EXAMINATION: [id number] INDICATION: Left posterior chest wall pain TECHNIQUE: A frontal view of the chest and 3 views of the left ribs were obtained. COMPARISON: 04/10/2022 FINDINGS: The lungs are free of acute opacities. No pleural effusion or pneumothorax. The heart size is normal. There is a large hiatal hernia. No displaced rib fracture is identified. IMPRESSION: 1. No acute cardiopulmonary abnormality or evidence of displaced rib fracture. 2. Large hiatal hernia. Reviewed, dictated and finalized at location B.
[2022-04-22 09:42] VITALS: BP 198/86; PULSE 55; RESP 20; TEMP 36.6; O2SAT 96
--- NOTE | 2022-04-22 09:42 | ED.FALL ---
HPI - Fall General Chief Complaint: Fall Stated Complaint: BACK PAIN AFTER FALL Time Seen by Provider: 04/22/22 09:42 Source: patient Mode of arrival: ambulatory Limitations: no limitations History of Present Illness HPI Narrative: 81-year-old female with a history of hypertension, dyslipidemia, hypothyroidism, CKD, DVT/ PE on Coumadin, CAD /mi/diastolic CHF, aortic sclerosis, pulmonary hypertension with tricuspid regurgitation fell backwards yesterday and hit. Her dog had gotten a hold of the floor mat and she was trying to pull it off when she fell backwards. -- left posterior chest wall -- occiput. no loss of consciousness. No other injuries noted. MD complaint: fall Onset (ago): day(s) ( Yesterday) Fall from: standing Fall witnessed: no Place fall occurred: home Loss of consciousness: none Symptoms prior to fall: none Location of injury: head and chest Severity: mild Quality: aching Associated symptoms (after fall): denies and chest pain Related Data Home Medications Medication Instructions Recorded Confirmed aspirin 81 mg tablet,delayed 81 mg PO DAILY 10/18/19 04/22/22 release (Ecotrin Low Strength) calcium carbonate 600 mg-vitamin 1 tablet PO BID 10/18/19 04/22/22 D3 20 mcg (800 unit) chewable tablet (Caltrate 600 plus D) omeprazole magnesium 20 mg 20 mg PO DAILY 10/18/19 04/22/22 tablet,delayed release (Prilosec OTC) vitamins A,C,D-olqa-lrrlsq 14,320 1 cap PO BID 04/01/22 04/22/22 unit-226 mg-200 unit capsule (PreserVision AREDS) allopurinol 100 mg tablet 100 mg PO DAILY 04/22/22 04/22/22 amlodipine 10 mg tablet 10 mg PO DAILY 04/22/22 04/22/22 clonidine HCl 0.1 mg tablet 0.1 mg PO BID 04/22/22 04/22/22 cranberry 1,000 mg capsule 4,200 mg PO DAILY 04/22/22 04/22/22 hydrochlorothiazide 12.5 mg capsule 12.5 mg PO DAILY 04/22/22 04/22/22 warfarin 1 mg tablet 1 - 3 mg PO DAILY 04/22/22 04/22/22 warfarin 1 mg tablet 1 mg PO DAILY 04/22/22 04/22/22 Allergies Allergy/AdvReac Type Severity Reaction Status Date / Time fentanyl Allergy Intermediate Unknown Verified 04/22/22 10:02 tramadol Allergy Intermediate Unknown Verified 04/22/22 10:02 adhesive Allergy Mild Unknown Verified 04/22/22 10:02 Sulfa (Sulfonamide Allergy Mild unknown Verified 04/22/22 10:02 Antibiotics) Sulfonamides Allergy Intermediate Unknown Uncoded 04/22/22 10:02 Review of Systems Review of Systems: All systems reviewed & are unremarkable except as noted in HPI and below Constitutional: Constitutional: Reports as per HPI and Reports no additional constitutional complaints Eyes: Eyes: Reports as per HPI and Reports no additional eye complaints ENT: Reports system reviewed and no additional complaints, except as documented and Reports as per HPI Cardiovascular: Cardiovascular: Reports as per HPI and Reports no additional cardiovascular complaints Respiratory: Respiratory: Reports as per HPI Comments: Left posterior chest wall pain Gastrointestinal: Gastrointestinal: Reports as per HPI Genitourinary: Genitourinary: Reports no additional female genitourinary complaints Musculoskeletal: Musculoskeletal: Reports no additional musculoskeletal complaints and Reports as per HPI Integumentary/Breasts: Skin/Breast: Reports system reviewed and no additional complaints, except as docu and Reports as per HPI Neurologic: Reports system reviewed and no additional complaints, except as documented and Reports as per HPI Psychiatric: Psychiatric: Reports no additional psychiatric complaints and Reports as per HPI Endocrine: Endocrine: Reports no additional endocrine complaints and Reports as per HPI Hematologic/Lymphatic: Hematologic/Lymphatic: Reports no additional hematologic/lymphatic complaints and Reports as per HPI Allergic/Immunologic: Allergic/Immunologic: Reports no additional allergic/immunologic complaints and Reports as per HPI [facility] Past Medical History Medical History (Reviewed 04/22/22 @ 09:55 by Sarthak
[2022-04-22 10:16] LABS: Basophils Absolute Auto 0.03 K/mm3 (0.00-0.10); Basophils Percent Auto 0.4 % (0.0-1.0); Eosinophils Absolute Auto 0.22 K/mm3 (0.02-0.50); Eosinophils Percent Auto 3.2 % (1.0-6.0); Hematocrit 33.2 % (35.0-42.0); Hemoglobin 10.4 g/dL (11.7-13.8); Immature Granulocyte Absolute 0.01 K/mm3 (0.00-0.00); Immature Granulocyte Percent A 0.1 % (0.0-0.0); Lymphocytes Absolute Auto 0.59 K/mm3 (1.10-4.50); Lymphocytes Percent Auto 8.7 % (18.0-42.0); Mean Corpuscular HGB Conc 31.3 g/dL (32.0-36.0); Mean Corpuscular Hemoglobin 27.2 pg (27.0-31.0); Mean Corpuscular Volume 86.9 fL (78.0-102.0); Mean Platelet Volume 10.7 fl (9.2-11.8); Monocytes Absolute Auto 0.51 K/mm3 (0.10-0.90); Monocytes Percent Auto 7.5 % (2.0-11.0); Neutrophils Absolute Auto 5.4 K/mm3 (1.7-7.2); Neutrophils Percent Auto 80.1 % (50.0-70.0); Platelet Count Result 209 K/mm3 (150-420); Red Blood Count 3.82 M/mm3 (4.20-5.40); Red Cell Distribution Width 18.2 % (11.6-14.4); White Blood Count 6.8 K/mm3 (4.8-10.8)
[2022-04-22 10:29] LABS: INR 1.7; Prothrombin Time 17.4 Seconds (9.50-12.10)
[2022-04-22] MEDS: HYDROcodone/acetaminophen (*CRX) 5-325 MG TABLET 1 TAB PO (10:35)
[2022-04-22 10:44] LABS: NT Pro B Type Natriuretic Pept 1361 pg/mL (0-450)
[2022-04-22 11:07] LABS: Anion Gap 8 mmol/L (8-16); Blood Urea Nitrogen 47 mg/dL (7-18); Calcium 8.7 mg/dL (8.5-10.1); Carbon Dioxide 23 mmol/L (21-32); Chloride 108 mmol/L (98-108); Estimated Glomerular Filt Rate 24; Glucose 99 mg/dL (70-99); Osmolality Calculated 300 mOsm/kg (285-295); Sodium 139 mmol/L (136-145)
[2022-04-22 11:36] VITALS: BP 160/61; PULSE 51; RESP 20; TEMP 36.6; O2SAT 94
== END 2022-04-22 11:40 | disposition home or self-care (01) ==
PROVIDERS: Emergency Provider Internal Medicine Critical Care Medicine; PCP Family Medicine
DX: R07.89 Other chest pain (principal); S09.90XA Unspecified injury of head, initial encounter; N18.30 Chronic kidney disease, stage 3 unspecified; W19.XXXA Unspecified fall, initial encounter; I50.9 Heart failure, unspecified; E78.5 Hyperlipidemia, unspecified; I12.9 Hypertensive chronic kidney disease with stage 1 through stage 4 chronic kidney disease, or unspecified chronic kidney disease; E03.9 Hypothyroidism, unspecified; Z86.718 Personal history of other venous thrombosis and embolism; Z79.01 Long term (current) use of anticoagulants
CPT/HCPCS: 36415; 70450; 71101; 80048; 83880; 85025; 85610; 99284; A9270

== ENCOUNTER 2022-05-12 10:08 | Outpatient (CLI) | payer MEDICARE, SELFPAY ==
[2022-05-12 10:42] LABS: Base Excess ABG -3.3 mmol/L (0-2); Carboxyhemoglobin 0.3 % (0-1.5); Methemoglobin ABG 0.3 % (0-1.5); Oxygen Content ABG 15.2 %vol (16.0-22.0); Oxyhemoglobin 94.4 % (94-100); PCO2 ABG 34.9 mmHg (35-45); PO2 ABG 75.2 mmHg (75-85); Total Hemoglobin 11.4 g/dL (12.0-18.0)
[2022-05-12 10:43] LABS: Device ROOM AIR; Modified Allen's Test Pass; Site Drawn LEFT BRACHIAL
== END 2022-05-12 10:09 | disposition home or self-care (01) ==
LOC: CHSLAB 10:10
PROVIDERS: PCP Family Medicine; Visit Provider Internal Medicine Pulmonary Disease
DX: I27.20 Pulmonary hypertension, unspecified (principal)
CPT/HCPCS: 36600; 82375; 82805; 83050

== ENCOUNTER 2022-05-13 10:08 | Outpatient (CLI) | payer MEDICARE, SELFPAY ==
[2022-05-13 13:08] VITALS: PULSE 79; O2SAT 93
[2022-05-13 13:11] VITALS: PULSE 91; O2SAT 89
[2022-05-13 13:14] VITALS: PULSE 77; O2SAT 93
--- NOTE | 2022-05-13 13:50 | HOMEO2EVAL ---
Evaluation was performed at [facility] Home Oxygen Evaluation RC: Home Oxygen (O2) Evaluation Start: 05/13/22 13:36 Freq: Status: Active Protocol: RPE Activity Type Activity Date Activity User E-sign Co-sign Detail Recorded Client Recorded Date Recorded By Document 05/13/22 13:08 MERA [id number] 05/13/22 13:39 KAB Document 05/13/22 13:11 KAB [id number] 05/13/22 13:40 KAB Document 05/13/22 13:14 KAB [id number] 05/13/22 13:46 KAB 05/13/22 05/13/22 05/13/22 13:08 13:11 13:14 Home O2 Evaluation Test Phase Resting Exercise Resting Oxygen Delivery Room Air Room Air Room Air Pulse Oximetry (90-100 %) 93 89 L 93 Pulse Rate (60-100 beats/min) 79 91 77 Activity Tolerance Good Good Good Ambulation Distance (feet) 215 Ambulation Distance (meters) 65.52 Home Oxygen Evaluation Comments Will Begin Pt's Spo2 Pt. walked all dropped tp 89 6minutes, but no lower mostly staying and did not 90 or 91, very stay that way briefly long. dropping to 89 and then back up. Spo2 93 after completion and resting. Treatment Charges O2 Evaluation - Outpatient
--- NOTE | 2022-06-12 15:05 | PFT_ITS ---
This report was moved to the correct visit on 06/25/22. Original report was signed by Sofi Tena MD on 06/12/22 1408. PFT Procedure Performed PFT Procedure Performed Spirometry with Pre/Post Bronchodilator Plethysmography (Lung Vol) Diffusing Cap (DLCO) Flow Vol Loop PFT Interpretation DOS: 05/13/2022 REQUESTING: Dr. Delmar Hollis REASON FOR TESTING: Shortness of breath PULMONARY FUNCTION TESTS Results are reliable and reproducible. The patient stated that she had a fall recently, and had difficulty taking a deep breath in; this may be part of the reason the inspiratory limb was truncated. Spirometry: The pre bronchodilator FEV1 is 1.46 L, 101% predicted, normal. The pre bronchodilator FVC is 1.82 L, 99% predicted, normal. The FEF/FVC is 96% normal. The FEF 25-75% is 1.24 L, 102% predicted, normal. After bronchodilator therapy there is minimal change in the flows. The FVC decreases by 2%, the FEV1 increases by 4%. The FEF 25-75 increases by 51%, becomes 1.86 L, 154% predicted. Lung volumes: Total lung capacity is 3.65 L, 104% predicted, normal. Residual volume is 1.83 L, 116% predicted. RV/TLC 114% predicted, normal. Airway resistance is increased, 208% predicted. Diffusion: DLCO is 25% predicted, 3.7 mL/min/mmHg, severely decreased. The DLCO/VA is 64% predicted, 2.09 mL/min/mmHg/L, mildly reduced. Flow volume loop: There is flattening of the inspiratory limb which is reproducible, and this can be seen in dynamic or variable extrathoracic obstruction. IMPRESSION: Normal spirometry with significant increase in small airways flows after bronchodilator administration, mild air trapping, and a severe decrease in diffusion capacity that partially corrects for alveolar volume. The main abnormality on this study is the diffusion impairment. Low diffusion with normal spirometry can be seen in early interstitial lung disease, anemia, increased carboxyhemoglobin due to cigarette smoking, pulmonary vascular disease such as recurrent pulmonary emboli, idiopathic pulmonary arterial hypertension or pulmonary vascular involvement with rheumatic diseases and vasculitides. Clinical correlation is recommended. The flattening of the inspiratory limb suggest dynamic or variable extrathoracic obstruction. Causes for this may include extrathoracic tracheomalacia, mobile tumors, polychondritis or vocal cord paralysis. Clinical correlation is recommended. The patient stated that she had a fall recently, and had difficulty taking a deep breath in; this may be part of the reason the inspiratory limb was truncated. Sofi Tena MD This dictation may have been done utilizing a voice recognition system. Attempts have been made to correct errors. However, there may be uncorrected grammatical, spelling, and recognition errors present. Report Initialized date/time: Sofi Tena MD 06/12/22 / 1505 Electronically signed by: Sofi Tena MD 06/12/22 [id number] [facility]
== END 2022-05-13 10:09 | disposition home or self-care (01) ==
LOC: CHSCARD 10:09
PROVIDERS: PCP Family Medicine; Visit Provider Internal Medicine Pulmonary Disease
DX: I27.20 Pulmonary hypertension, unspecified (principal); R06.00 Dyspnea, unspecified
CPT/HCPCS: 94060; 94618; 94726; 94729

== ENCOUNTER 2022-05-15 09:32 | Outpatient (CLI) | payer MEDICARE, SELFPAY ==
[2022-05-15 10:03] LABS: INR 2.4; Prothrombin Time 24.9 Seconds (9.50-12.10)
[2022-05-15 10:06] LABS: Creatine Kinase 56 U/L (26-192)
[2022-05-15 10:28] LABS: Rheumatoid Factor Screen Negative (Negative)
[2022-05-19 22:16] LABS: Anti Cyclic Citrullinated Pept <16 Units (<20)
[2022-05-20 16:52] LABS: ANA Cascade Screen Negative (Negative)
[2022-05-20 21:34] LABS: ANCA Screen Negative (Negative)
[2022-05-21 04:23] LABS: Aldolase 2.2 U/L (<=8.1)
== END 2022-05-15 09:33 | disposition home or self-care (01) ==
LOC: CHSLAB 09:37
PROVIDERS: PCP Family Medicine; Visit Provider Internal Medicine Pulmonary Disease
DX: Z79.01 Long term (current) use of anticoagulants (principal); I82.409 Acute embolism and thrombosis of unspecified deep veins of unspecified lower extremity; J84.9 Interstitial pulmonary disease, unspecified; J98.4 Other disorders of lung
CPT/HCPCS: 36415; 82085; 82550; 85610; 86036; 86038; 86200; 86331; 86430; 86606; 86609

== ENCOUNTER 2022-05-26 10:25 | Outpatient (CLI) | payer MEDICARE, SELFPAY ==
--- NOTE | ~2022-05-26 | CT_ITS ---
EXAMINATION:CT chest high resolution wo nm DATE: 05/26/2022 10:42 INDICATION: Shortness of breath. Pulmonary hypertension. TECHNIQUE: Computed tomography (CT) of the chest was performed without intravenous contrast. Automate d exposure control and iterative reconstruction technique were employed. The dose-length product (DLP ) was 121.41 mGy-cm. COMPARISON: Chest CT 03/25/2020 FINDINGS: The lungs demonstrate mild atelectasis. There is peripheral septal thickening in the inferi or lungs. No bronchiectasis or honeycombing. Calcified mediastinal lymph nodes are consistent with ol d granulomatous disease. There is a 10 mm nodule in right thyroid lobe, likely not clinically signifi cant. Cardiomegaly is noted. There are coronary artery calcifications. No pericardial effusion. The c entral pulmonary arteries are enlarged, consistent with pulmonary arterial hypertension. There is a l arge sliding hiatal hernia. There is thoracic kyphosis with mild chronic anterior wedging of multiple vertebral bodies and severe spondylosis. IMPRESSION: 1. Septal thickening in the inferior lungs, consistent with mild pulmonary edema versus mild chronic interstitial lung disease. 2. Cardiomegaly. 3. Large sliding hiatal hernia. Reviewed, dictated and finalized at location A. IMPRESSION: 1. Septal thickening in the inferior lungs, consistent with mild pulmonary anatoliy a versus mild chronic interstitial lung disease. 2. Cardiomegaly. 3. Large sliding hiatal hernia.
--- NOTE | 2022-06-12 15:02 | P.PCNPFT_ITS ---
PFT Procedure Performed PFT Procedure Performed Spirometry with Pre/Post Bronchodilator Plethysmography (Lung Vol) Diffusing Cap (DLCO) Flow Vol Loop PFT Interpretation DOS: 05/13/2022 REQUESTING: Dr. Delmar Hollis REASON FOR TESTING: Shortness of breath PULMONARY FUNCTION TESTS Results are reliable and reproducible. The patient stated that she had a fall recently, and had difficulty taking a deep breath in; this may be part of the reason the inspiratory limb was truncated. Spirometry: The pre bronchodilator FEV1 is 1.46 L, 101% predicted, normal. The pre bronchodilator FVC is 1.82 L, 99% predicted, normal. The FEF/FVC is 96% normal. The FEF 25-75% is 1.24 L, 102% predicted, normal. After bronchodilator therapy there is minimal change in the flows. The FVC decreases by 2%, the FEV1 increases by 4%. The FEF 25-75 increases by 51%, becomes 1.86 L, 154% predicted. Lung volumes: Total lung capacity is 3.65 L, 104% predicted, normal. Residual volume is 1.83 L, 116% predicted. RV/TLC 114% predicted, normal. Airway resistance is increased, 208% predicted. Diffusion: DLCO is 25% predicted, 3.7 mL/min/mmHg, severely decreased. The DLCO/VA is 64% predicted, 2.09 mL/min/mmHg/L, mildly reduced. Flow volume loop: There is flattening of the inspiratory limb which is reproduc ible, and this can be seen in dynamic or variable extrathoracic obstruction. IMPRESSION: Normal spirometry with significant increase in small airways flows after bronchodilator administration, mild air trapping, and a severe decrease in diffusion capacity that partially corrects for alveolar volume. The main abnormality on this study is the diffusion impairment. Low diffusion with normal spirometry can be seen in early interstitial lung disease, anemia, increased carboxyhemoglobin due to cigarette smoking, pulmonary vascular disease such as recurrent pulmonary emboli, idiopathic pulmonary arterial hypertension or pulmonary vascular involvement with rheumatic diseases and vasculitides. Clinical correlation is recommended. The flattening of the inspiratory limb suggest dynamic or variable extrathoracic obstruction. Causes for this may include extrathoracic tracheomalacia, mobile tumors, polychondritis or vocal cord paralysis. Clinical correlation is recommended. The patient stated that she had a fall recently, and had difficulty taking a deep breath in; this may be part of the reason the inspiratory limb was truncated. Sofi Tena MD
== END 2022-05-26 10:26 | disposition home or self-care (01) ==
LOC: CHSIMG 10:26
PROVIDERS: PCP Family Medicine; Visit Provider Internal Medicine Pulmonary Disease
DX: I27.20 Pulmonary hypertension, unspecified (principal)
CPT/HCPCS: 71250

== ENCOUNTER 2022-05-27 11:20 | Outpatient (CLI) | payer MEDICARE, SELFPAY ==
[2022-05-27 12:20] LABS: Prothrombin Time 39.5 Seconds (9.50-12.10)
[2022-05-27 12:29] LABS: Thyroid Stimulating Hormone Reflex 1.43 u/IU/mL (0.36-3.74)
== END 2022-05-27 11:21 | disposition home or self-care (01) ==
LOC: CHSLAB 11:23
PROVIDERS: PCP Family Medicine; Visit Provider Family Medicine
DX: I82.409 Acute embolism and thrombosis of unspecified deep veins of unspecified lower extremity (principal); I26.99 Other pulmonary embolism without acute cor pulmonale; E11.9 Type 2 diabetes mellitus without complications; E03.9 Hypothyroidism, unspecified; R10.9 Unspecified abdominal pain; Z79.01 Long term (current) use of anticoagulants
CPT/HCPCS: 36415; 84443; 85610

== ENCOUNTER 2022-06-05 09:27 | Outpatient (RCR) | payer MEDICARE, SELFPAY ==
[2022-03-25 09:37] LABS: INR 1.4; Prothrombin Time 15.4 Seconds (9.50-12.10)
[2022-05-01 10:17] LABS: INR 4.4; Prothrombin Time 43.1 Seconds (9.50-12.10)
[2022-05-08 10:40] LABS: INR 1.3
[2022-06-05 09:49] LABS: INR 3.1; Prothrombin Time 31.1 Seconds (9.50-12.10)
== END 2022-06-23 23:59 | disposition home or self-care (01) ==
LOC: CHSLAB 09:27
PROVIDERS: PCP Family Medicine; Visit Provider Nurse Practitioner Family
DX: Z79.01 Long term (current) use of anticoagulants (principal); I82.409 Acute embolism and thrombosis of unspecified deep veins of unspecified lower extremity
CPT/HCPCS: 36415; 85610

== ENCOUNTER 2022-08-19 15:17 | Outpatient (CLI) | payer MEDICARE, SELFPAY ==
--- NOTE | ~2022-08-19 | XR_ITS ---
XR chest 2V 08/19/2022 15:44 Indication: Shortness of breath and fatigue Procedure: 2 view chest Comparison: Comparison to multiple prior studies sequentially, with oldest reviewed study dated 06/28. Findings: There is a hiatal hernia. Cardiomegaly. Patchy bilateral airspace disease of the mid and lo wer lungs. Small pleural effusions. There are bilateral perihilar infiltrates. There is peribronchial thickening. Impression: 1: Bilateral infiltrates of the mid and lower lungs which may represent edema and/or pneumonia. 2: Small pleural effusions. 3: Large hiatal hernia. Reviewed, dictated and finalized at location B. [employer] MANAGEMENT SALES CONSULTANT Impression: 1: Bilateral infiltrates of the mid and lower lungs which may represent edema a nd/or pneumonia. 2: Small pleural effusions. 3: Large hiatal hernia.
[2022-08-19 15:32] LABS: Hematocrit 33.3 % (35.0-42.0); Mean Corpuscular Volume 86.5 fL (78.0-102.0); Mean Platelet Volume 10.2 fl (9.2-11.8); Platelet Count Result 292 K/mm3 (150-420); Red Blood Count 3.85 M/mm3 (4.20-5.40); Red Cell Distribution Width 17.2 % (11.6-14.4); White Blood Count 8.9 K/mm3 (4.8-10.8)
[2022-08-19 16:22] LABS: Alanine Aminotransferase 15 U/L (14-59); Albumin Level 3.4 g/dL (3.4-5.0); Alkaline Phosphatase 141 U/L (46-116); Anion Gap 14 mmol/L (8-16); Aspartate Amino Transferase 18 U/L (15-37); Bilirubin,Total 0.3 mg/dL (0.00-1.00); Blood Urea Nitrogen 38 mg/dL (7-18); Calcium 8.4 mg/dL (8.5-10.1); Carbon Dioxide 22 mmol/L (21-32); Chloride 109 mmol/L (98-108); Estimated Glomerular Filt Rate 23; Folic Acid 12.7 ng/mL (8.6->20); Glucose 114 mg/dL (70-99); Osmolality Calculated 310 mOsm/kg (285-295); Potassium 5.1 mmol/L (3.5-5.1); Sodium 145 mmol/L (136-145); Total Protein 7.1 g/dL (6.4-8.2); Vitamin B12 1327 pg/mL (193-986)
[2022-08-19 16:55] LABS: Thyroid Stimulating Hormone Reflex 3.06 u/IU/mL (0.36-3.74)
== END 2022-08-19 15:18 | disposition home or self-care (01) ==
LOC: CHSLAB 15:18
PROVIDERS: PCP Family Medicine; Visit Provider Family Medicine
DX: R53.83 Other fatigue (principal); E11.9 Type 2 diabetes mellitus without complications; E53.8 Deficiency of other specified B group vitamins
CPT/HCPCS: 36415; 71046; 80053; 82607; 82746; 84443; 85027

== ENCOUNTER 2022-08-23 10:42 | Inpatient (IN) | payer MEDICARE, SELFPAY ==
[2022-08-23] VITALS (9 sets, daily range): BP systolic 157–175; BP diastolic 65–78; PULSE 70–79; RESP 18–24; TEMP 36.6–37.4; O2SAT 91–94; BMI 28.7
--- NOTE | ~2022-08-23 | XR_ITS ---
XR chest 2V DATE: 08/23/2022 11:39 INDICATION: Cough, dyspnea TECHNIQUE: AP and lateral views COMPARISON: 08/19/2022 AP and lateral chest FINDINGS: Prominent patchy consolidating infiltrates and atelectasis in the left mid and bilateral lo wer lungs and bilateral pleural effusions. Cardiomegaly. Mild pulmonary vascular congestion Aortic calcification. Extensive calcification of the abdominal aorta, without apparent aneurysm. Osteopenia. Degenerative changes of the thoracic and particularly lumbar spine. IMPRESSION: Prominent left mid and particularly lower lung atelectasis and/or consolidation Cardiomegaly, bilateral pleural effusions, mild pulmonary vascular congestion, consistent with conges tive heart failure Reviewed, dictated and finalized at location A. E[employer] MECHANICAL SPECIALIST IMPRESSION: Prominent left mid and particularly lower lung atelectasis and/or c onsolidation Cardiomegaly, bilateral pleural effusions, mild pulmonary vascular congestion, consistent with congestive heart failure
--- NOTE | 2022-08-23 11:00 | ED.SOB ---
HPI - SOB/Dyspnea General Chief Complaint: Shortness of Breath/Dyspnea Stated Complaint: trouble breathing Time Seen by Provider: 08/23/22 11:00 Source: patient and RN notes reviewed Mode of arrival: ambulatory Limitations: no limitations History of Present Illness HPI Narrative: patient complains of worsening shortness of breath over the last couple of days. She was seen in the office 4 days ago. At that time she said that she had been having problems with worsening shortness of breath for couple of weeks. She had lab work done as an outpatient and a chest x-ray which showed evidence of pulmonary edema versus pneumonia. She was started on Zithromax and Augmentin as well as Lasix. She says she is just not getting any better. She had a normal white count but did not have a B-natriuretic peptide. She has had an elevated BNP in the past a little over a 1000. MD elicited complaint: shortness of breath Pertinent past history: congestive heart failure Onset (ago): day(s) (5) Context: recent illness Timing: constant Severity: severe Exacerbating factors: lying flat and exertion Relieving factors: nothing Known history of: congestive heart failure Associated symptoms: denies other symptoms Related Data Home oxygen amount: none Home Medications Medication Instructions Recorded Confirmed aspirin 81 mg tablet,delayed 81 mg PO DAILY 10/18/19 08/23/22 release (Ecotrin Low Strength) calcium carbonate 600 mg-vitamin 1 tablet PO BID 10/18/19 08/23/22 D3 20 mcg (800 unit) chewable tablet (Caltrate 600 plus D) omeprazole magnesium 20 mg 20 mg PO DAILY 10/18/19 08/23/22 tablet,delayed release (Prilosec OTC) vitamins A,C,C-myki-htfvvt 14,320 1 cap PO BID 04/01/22 08/23/22 unit-226 mg-200 unit capsule (PreserVision AREDS) allopurinol 100 mg tablet 100 mg PO DAILY 04/22/22 08/23/22 amlodipine 10 mg tablet 10 mg PO DAILY 04/22/22 08/23/22 clonidine HCl 0.1 mg tablet 0.1 mg PO BID 04/22/22 08/23/22 hydrochlorothiazide 12.5 mg capsule 12.5 mg PO DAILY 04/22/22 08/23/22 Allergies Allergy/AdvReac Type Severity Reaction Status Date / Time fentanyl Allergy Intermediate Unknown Verified 08/23/22 10:54 tramadol Allergy Intermediate Unknown Verified 08/23/22 10:54 adhesive Allergy Mild Unknown Verified 08/23/22 10:54 Sulfa (Sulfonamide Allergy Mild unknown Verified 08/23/22 10:54 Antibiotics) Sulfonamides Allergy Intermediate Unknown Uncoded 08/23/22 10:54 Review of Systems Review of Systems: All systems reviewed & are unremarkable except as noted in HPI and below Cardiovascular: Cardiovascular: Denies chest pain and Denies rapid heart rate Respiratory: Respiratory: Reports as per HPI Gastrointestinal: Gastrointestinal: Denies nausea and Denies vomiting [facility] Past Medical History Medical History Abnormality of gait and mobility Chronic diarrhea CKD (chronic kidney disease) stage 3, GFR 30-59 ml/min Congestive heart failure (CHF) DVT (deep venous thrombosis) Hyperlipidemia Hypertension Hypothyroidism Left leg weakness Myocardial infarction Osteoarthritis Pulmonary hypertension Surgical History Surgical History History of hysterectomy History of knee replacement Hx laparoscopic cholecystectomy Social History Social History Smoking status: Never smoker Second hand tobacco smoke exposure: Yes Alcohol intake: former Substance use: never Substance use type: does not use Gender identity (if verbalized by the patient): Female Spiritual care concerns: No Exam Const: General: no acute distress, alert and ill appearing chronically Nutritional Appearance: well nourished Orientation/consciousness: patient oriented x3 Limitations: no limitations HENMT: Head: normal to inspection Ears: external ears normal Eyes: Conjunctivae: conjunct
--- NOTE | 2022-08-23 11:43 | ECG_ITS ---
Measurements Intervals [place] Rate: 69 P: 15 [place]: 177 QRS: -8 QRSD: 83 T: 29 QT: 389 QTc: 418 Interpretive Statements SINUS RHYTHM DELAYED PRECORDIAL R/S TRANSITION BASELINE ARTIFACT- I, II, III, V1 BORDERLINE ECG COMPARED TO ECG 09/26/2021 11:41:05 SINUS RHY[address]M NOW PRESENT ST (T WAVE) DEVIATION NOW PRESENT Electronically Signed On 08-23-2022 16:12:09 TAXATION INSPECTOR by Phil Gilbert D.O.
[2022-08-23 12:01] LABS: Basophils Absolute Auto 0.04 K/mm3 (0.00-0.10); Basophils Percent Auto 0.4 % (0.0-1.0); Eosinophils Absolute Auto 0.11 K/mm3 (0.02-0.50); Hematocrit 32.8 % (35.0-42.0); Hemoglobin 9.7 g/dL (11.7-13.8); Immature Granulocyte Absolute 0.03 K/mm3 (0.00-0.00); Immature Granulocyte Percent A 0.3 % (0.0-0.0); Lymphocytes Absolute Auto 0.39 K/mm3 (1.10-4.50); Lymphocytes Percent Auto 3.7 % (18.0-42.0); Mean Corpuscular HGB Conc 29.6 g/dL (32.0-36.0); Mean Corpuscular Hemoglobin 25.2 pg (27.0-31.0); Mean Corpuscular Volume 85.2 fL (78.0-102.0); Mean Platelet Volume 10.4 fl (9.2-11.8); Monocytes Absolute Auto 0.53 K/mm3 (0.10-0.90); Neutrophils Absolute Auto 9.5 K/mm3 (1.7-7.2); Neutrophils Percent Auto 89.6 % (50.0-70.0); Nucleated Red Blood Cells Absolute Auto 0.02 K/mm3 (0.00-0.00); Nucleated Red Blood Cells Perc 0.2 % (0-0.0); Platelet Count Result 297 K/mm3 (150-420); Red Blood Count 3.85 M/mm3 (4.20-5.40); Red Cell Distribution Width 17.2 % (11.6-14.4); White Blood Count 10.6 K/mm3 (4.8-10.8)
[2022-08-23 12:21] LABS: Alanine Aminotransferase 18 U/L (14-59); Albumin Level 3.1 g/dL (3.4-5.0); Alkaline Phosphatase 126 U/L (46-116); Anion Gap 16 mmol/L (8-16); Aspartate Amino Transferase 17 U/L (15-37); Bilirubin,Total 0.4 mg/dL (0.00-1.00); Blood Urea Nitrogen 35 mg/dL (7-18); Calcium 8.2 mg/dL (8.5-10.1); Carbon Dioxide 21 mmol/L (21-32); Chloride 110 mmol/L (98-108); Estimated Glomerular Filt Rate 24; Glucose 108 mg/dL (70-99); Magnesium 1.2 mg/dL (1.8-2.4); NT Pro B Type Natriuretic Pept 10531 pg/mL (0-450); Osmolality Calculated 313 mOsm/kg (285-295); Potassium 4.4 mmol/L (3.5-5.1); Sodium 147 mmol/L (136-145); Troponin I 32.2 ng/L (0.00-60.4)
[2022-08-23 12:54] LABS: Influenza A QL RT-PCR Negative (Negative); Influenza B QL RT-PCR Negative (Negative); SARS-CoV-2 RNA PCR Negative (Negative)
[2022-08-23] MEDS: FUROSEMIDE INJ 40 MG/4 ML VIAL 60 MG IV PUSH (13:02)
--- NOTE | 2022-08-23 13:15 | PC.NURSE ---
ERP offered patient catheter and patient denies want for one at this time. states she has a protruding bladder and its hard to catheterize her. patient is able to transfer self to bedside commode but gets extremely sob. o2 sat's drop to 79 during transfer.
[2022-08-23 13:17] LABS: INR 4.2; Prothrombin Time 40.9 Seconds (9.50-12.10)
[2022-08-23 13:34] LABS: Bilirubin Urine Negative (Negative); Blood Urine 1+ (Negative); Glucose Urine UA Negative (Negative); Ketones Urine Trace (Negative); Leukocyte Esterase Ur 1+ LEU/UL (Negative); Nitrate Urine Negative (Negative); Protein Urine 2+ (Negative); Specific Grav Ur >= 1.030 (1.010-1.020); Urobilinogen Urine 0.2 mg/dL (0.2-1.0); pH Urine 5.5 (5.0-8.0)
[2022-08-23 13:40] LABS: Add Urine Microscopic? YES; Appearance Urine Cloudy (Clear); Color Urine Light Yellow (Yellow)
[2022-08-23 13:50] LABS: Amorphous Sediment Urine Heavy; Bacteria Urine 4+ /hpf; Squamous Epithelial Cell Urine Many /hpf (Few); WBC Clumps Urine Present /hpf
--- NOTE | 2022-08-23 14:59 | ADMGEN ---
This patient, Lu Galeano, was admitted to 2nd Floor Room 205-1. Patient/family oriented to hospital policies and general routines including ID bracelet, bed and alarms, visiting hours, pain management, procedures, bathroom and other care routines, personal items, smoking policy, room service/diet, and visiting hours. Information on how to activate the Rapid Response Team has been discussed. Patient/Family are encouraged to report perceived risks to care and to ask questions if they do not understand what they are told or what they should do.
[2022-08-23] MEDS: cloNIDine HCL 0.1 MG TABLET PO (16:58)
[2022-08-23] MEDS: FUROSEMIDE INJ 20 MG/2 ML VIAL IV PUSH (20:58)
--- NOTE | 2022-08-23 22:30 | PC.NURSE ---
Pharmacy had a communication on the MAR questioning whether or not Coumadin should be held, given the INR of 4.2. SONOGRAPHER was notified, during a call for another issue. SONOGRAPHER stated that Coumadin should be held. This information was sent to pharmacy via a communication to pharmacy through [employer].
[2022-08-24] VITALS (9 sets, daily range): BP systolic 138–161; BP diastolic 67–74; PULSE 59–78; RESP 20–22; TEMP 36.6–37.2; O2SAT 89–91; BMI 28.6
[2022-08-24 05:07] LABS: Basophils Absolute Auto 0.03 K/mm3 (0.00-0.10); Basophils Percent Auto 0.4 % (0.0-1.0); Hemoglobin 8.6 g/dL (11.7-13.8); Immature Granulocyte Absolute 0.02 K/mm3 (0.00-0.00); Immature Granulocyte Percent A 0.3 % (0.0-0.0); Lymphocytes Absolute Auto 0.77 K/mm3 (1.10-4.50); Lymphocytes Percent Auto 9.7 % (18.0-42.0); Mean Corpuscular HGB Conc 29.7 g/dL (32.0-36.0); Mean Corpuscular Hemoglobin 25.4 pg (27.0-31.0); Mean Corpuscular Volume 85.5 fL (78.0-102.0); Mean Platelet Volume 10.9 fl (9.2-11.8); Monocytes Absolute Auto 0.64 K/mm3 (0.10-0.90); Monocytes Percent Auto 8.1 % (2.0-11.0); Neutrophils Absolute Auto 6.1 K/mm3 (1.7-7.2); Neutrophils Percent Auto 76.5 % (50.0-70.0); Nucleated Red Blood Cells Absolute Auto 0.02 K/mm3 (0.00-0.00); Nucleated Red Blood Cells Perc 0.3 % (0-0.0); Platelet Count Result 261 K/mm3 (150-420); Red Blood Count 3.39 M/mm3 (4.20-5.40); Red Cell Distribution Width 17.1 % (11.6-14.4); White Blood Count 7.9 K/mm3 (4.8-10.8)
[2022-08-24 05:17] LABS: Anion Gap 10 mmol/L (8-16); Blood Urea Nitrogen 35 mg/dL (7-18); Calcium 7.9 mg/dL (8.5-10.1); Carbon Dioxide 24 mmol/L (21-32); Chloride 111 mmol/L (98-108); Estimated Glomerular Filt Rate 25; Glucose 84 mg/dL (70-99); Magnesium 1.2 mg/dL (1.8-2.4); Osmolality Calculated 307 mOsm/kg (285-295); Potassium 4.4 mmol/L (3.5-5.1); Sodium 145 mmol/L (136-145)
[2022-08-24] MEDS: LEVOTHYROXINE SODIUM 25 MCG TABLET PO (05:50)
--- NOTE | 2022-08-24 07:55 | PM.IMHP ---
H&P: HPI History of Present Illness Date/Time: 08/24/22 07:55 Chief Complaint: sHORTNESS OF BREATH Narrative: This 82-year-old female presented to the emergency room complaining of shortness of breath. Patient has a past medical history of hypertension, acid reflux, hypothyroidism, congestive heart failure, hyperlipidemia patient is on anticoagulation taking Coumadin with the INR of 4.2 will hold Coumadin. Patient has a BNP greater than 10,000 we will IV diuresis. Patient will be on oxygen until shortness of breath has subsided we will continue to monitor . Today patient's potassium is 4.4, sodium is 145, BUN is 35, creatinine is 1.89, RBCs is 3.39, WBCs are 7.9, hemoglobin is 8.6, platelets of 261. Chest x-ray: Size with congestive heart failure patient will be admitted we will continue to monitor in treat her CHF. Patient was diagnosed with the urinary tract infection as well were treating with IV Rocephin at this time patient has remained afebrile eating and drinking without any difficulties will continue to monitor Review of Systems Review of Systems: Shortness of breath All systems reviewed & are unremarkable except as noted in HPI and below PMFSH Past Medical History Medical History Abnormality of gait and mobility Chronic diarrhea CKD (chronic kidney disease) stage 3, GFR 30-59 ml/min Congestive heart failure (CHF) DVT (deep venous thrombosis) Hyperlipidemia Hypertension Hypothyroidism Left leg weakness Myocardial infarction Osteoarthritis Pulmonary hypertension Surgical History Surgical History History of hysterectomy History of knee replacement Hx laparoscopic cholecystectomy Family History Family History Mother Cerebrovascular accident Father Congestive heart failure Sibling Cancer Social History Social History Smoking status: Never smoker Second hand tobacco smoke exposure: Yes Alcohol intake: never Substance use: never Substance use type: does not use Lack of Transportation: No Lack of Food: Never True Current Housing: I Have Housing Concerned About Future Housing: No Difficulty Paying Gas/Electric Bills: No Difficulty Paying for Meds: No Currently Unemployed: No Education: Bachelor's Degree Difficulty w/ Childcare or Family Care: No Gender identity (if verbalized by the patient): Female Spiritual care concerns: No Comments At time as signature, I have reviewed and agree with nursing past medical, social, surgical and family history. Please see nursing chart for further information. There is no relevant family history pertinent to the presenting complaint. Meds Home Medications and Allergies Home Medications Medication Instructions Recorded Confirmed Type aspirin 81 mg tablet,delayed 81 mg PO DAILY 10/18/19 08/23/22 History release (Ecotrin Low Strength) calcium carbonate 600 mg-vitamin 1 tablet PO BID 10/18/19 08/23/22 History D3 20 mcg (800 unit) chewable tablet (Caltrate 600 plus D) omeprazole magnesium 20 mg 20 mg PO DAILY 10/18/19 08/23/22 History tablet,delayed release (Prilosec OTC) atorvastatin 20 mg tablet 20 mg PO DAILY #90 tabs 06/13/20 08/23/22 Rx levothyroxine 25 mcg tablet 25 mcg PO DAILY #90 tabs 12/22/21 08/23/22 Rx metoprolol succinate 25 mg 25 mg PO DAILY #90 tabs 02/18/22 08/23/22 Rx tablet,extended release 24 hr vitamins A,C,D-qcpu-uyajmw 14,320 1 cap PO BID 04/01/22 08/23/22 History unit-226 mg-200 unit capsule (PreserVision AREDS) allopurinol 100 mg tablet 100 mg PO DAILY 04/22/22 08/23/22 History amlodipine 10 mg tablet 10 mg PO DAILY 04/22/22 08/23/22 History clonidine HCl 0.1 mg tablet 0.1 mg PO BID 04/22/22 08/23/22 History hydrochlorothiazide 12.5 mg capsule 12.5 mg PO ERIC
[2022-08-24 08:27] LABS: INR 4.3; Prothrombin Time 41.9 Seconds (9.50-12.10)
[2022-08-24] MEDS: allopurinoL 100 MG TABLET PO (08:29)
[2022-08-24] MEDS: cloNIDine HCL 0.1 MG TABLET PO ×2 (08:29→16:46)
[2022-08-24] MEDS: hydroCHLOROthiazide 12.5 MG CAPSULE PO (08:29)
[2022-08-24] MEDS: PANTOPRAZOLE 40 MG TABLET PO (08:29)
[2022-08-24] MEDS: ASPIRIN 81 MG ENTERIC TABLET PO (08:30)
[2022-08-24] MEDS: amLODIPine BESYLATE 5 MG TABLET 10 MG PO (08:30)
[2022-08-24] MEDS: ATORVASTATIN 10 MG TABLET 20 MG PO (08:30)
[2022-08-24] MEDS: METOPROLOL SUCCINATE EXT REL 25 MG TABCR PO (08:31)
[2022-08-24] MEDS: FUROSEMIDE INJ 20 MG/2 ML VIAL IV PUSH ×2 (08:31→20:28)
--- NOTE | 2022-08-24 15:38 | PC.NURSE ---
Patient assisted to bedside commode with 1 assist. Patient able to wipe self and transferred back to bed. Side rails up. Call light and belongings within reach. Patient with O2 @ 4LPM/NC. SOB with exertion observed.
[2022-08-24] MEDS: LORazepam (*CRX) 0.5 MG TABLET PO (20:30)
[2022-08-24] MEDS: ACETAMINOPHEN 325 MG TABLET 650 MG PO (20:30)
[2022-08-25] VITALS (12 sets, daily range): BP systolic 142–157; BP diastolic 67–70; PULSE 72–80; RESP 20–22; TEMP 36.8–37.5; O2SAT 80–98
[2022-08-25 05:22] LABS: Hematocrit 28.3 % (35.0-42.0); Hemoglobin 8.6 g/dL (11.7-13.8); Mean Corpuscular HGB Conc 30.4 g/dL (32.0-36.0); Mean Corpuscular Hemoglobin 26.1 pg (27.0-31.0); Mean Corpuscular Volume 85.8 fL (78.0-102.0); Mean Platelet Volume 10.3 fl (9.2-11.8); Platelet Count Result 248 K/mm3 (150-420)
[2022-08-25 05:33] LABS: Anion Gap 8 mmol/L (8-16); Blood Urea Nitrogen 37 mg/dL (7-18); Calcium 7.3 mg/dL (8.5-10.1); Carbon Dioxide 27 mmol/L (21-32); Chloride 109 mmol/L (98-108); Estimated Glomerular Filt Rate 25; Glucose 87 mg/dL (70-99); Osmolality Calculated 305 mOsm/kg (285-295); Potassium 4.1 mmol/L (3.5-5.1); Sodium 144 mmol/L (136-145)
[2022-08-25] MEDS: LEVOTHYROXINE SODIUM 25 MCG TABLET PO (06:00)
[2022-08-25 08:40] LABS: INR 3.1; Prothrombin Time 31.4 Seconds (9.50-12.10)
[2022-08-25 09:21] LABS: NT Pro B Type Natriuretic Pept 6082 pg/mL (0-450)
[2022-08-25] MEDS: METOPROLOL SUCCINATE EXT REL 25 MG TABCR PO (09:21)
[2022-08-25] MEDS: ASPIRIN 81 MG ENTERIC TABLET PO (09:21)
[2022-08-25] MEDS: amLODIPine BESYLATE 5 MG TABLET 10 MG PO (09:21)
[2022-08-25] MEDS: cloNIDine HCL 0.1 MG TABLET PO ×2 (09:21→16:45)
[2022-08-25] MEDS: FUROSEMIDE INJ 20 MG/2 ML VIAL IV PUSH ×2 (09:21→20:49)
[2022-08-25] MEDS: hydroCHLOROthiazide 12.5 MG CAPSULE PO (09:21)
[2022-08-25] MEDS: ATORVASTATIN 10 MG TABLET 20 MG PO (09:22)
[2022-08-25] MEDS: PANTOPRAZOLE 40 MG TABLET PO (09:22)
[2022-08-25] MEDS: allopurinoL 100 MG TABLET PO (09:22)
[2022-08-25] MEDS: MAGNESIUM SULF 2 GM/WATER 50ML 2 GM/50 ML BAG IVPB (09:24)
--- NOTE | 2022-08-25 11:00 | WPDPN ---
Progress Note: A&P Assessment and Plan (1) Congestive heart failure: Qualifiers: Heart failure chronicity: acute Heart failure type: systolic Qualified Code(s): I50.21 - Acute systolic (congestive) heart failure Code(s): I50.9 - Heart failure, unspecified Status: Acute Assessment and Plan: BNP greater than 10,000 IV Lasix continue with oxygen as needed pulse ox greater than 92% use IS up in recliner chair elevate legs walk study today (2) Acute UTI: Code(s): N39.0 - Urinary tract infection, site not specified Status: Acute Assessment and Plan: drink plenty of fluids IV antibiotics Rocephin monitor for worsening infection (3) Fatigue: Code(s): R53.83 - Other fatigue Status: Acute Assessment and Plan: PT and OT to evaluate and treat (4) Hyperlipidemia: Code(s): E78.5 - Hyperlipidemia, unspecified Status: Chronic Assessment and Plan: continue home medication (5) Hypertension: Code(s): I10 - Essential (primary) hypertension Status: Chronic Assessment and Plan: monitor vitals as scheduled blood pressure stable continue home medication (6) Hypothyroidism: Code(s): E03.9 - Hypothyroidism, unspecified Status: Chronic Assessment and Plan: continue home medication Subjective Date/time seen: 08/25/22 11:00 Interval history: We will restart patient back on her coumadin as her level is normalizing and we will restart on 2mg at this time Patient may need a home oxygen as we will do a walk study this morning and monitor her labs. Patient complained of oxygen drying her nose out ordered saline flush as a gives her nosebleed which she has to drive. Exam Narrative: GENERAL:Ill-appearing, well-nourished, and in no acute distress. HEAD:Normocephalic, atraumatic. EYES: PERRLA ENT: Nares clear, no rhinorrhea or epistaxis. Mucous membranes moist. CHEST: Clear to diminshed auscultation. mild respiratory distress.Hyperventilation HEART: irregularRegular rate and rhythm. Normal peripheral pulses. ABDOMEN: Soft, nontender, nondistended, normal active bowel sounds. EXTREMITIES: Normal range of motion. 2+ edema. SKIN: Warm, dry, no rash. NEURO: No focal deficits. Alert and oriented x3. Objective Data Vital Signs Vital Signs: Vital Signs - 24 hr 11/28/22 16:00 08/24/22 19:52 08/25/22 00:00 Temperature 98 F 98.7 F Pulse Rate 78 78 72 Respiratory Rate 20 20 20 Blood Pressure 157/67 H 152/67 H Pulse Oximetry 89 L 91 91 Oxygen Delivery Nasal Cannula Nasal Cannula Nasal Cannula Oxygen Flow Rate 4 4 4 08/25/22 09:21 08/25/22 07:45 Temperature 98.3 F Pulse Rate 80 80 Respiratory Rate 20 Blood Pressure 157/70 H Pulse Oximetry 98 Oxygen Delivery Nasal Cannula Oxygen Flow Rate 4 Intake/Output Intake/Output: Intake & Output 08/22/22 08/23/22 08/24/22 08/25/22 23:59 23:59 23:59 23:59 Intake Total 290 1290 670.833 Output Total 350 1050 550 Balance -60 240 120.833 Meds/Results Medications: Active Medications Generic Name Dose Route Start Last Admin Trade Name Freq PRN Reason Stop Dose Admin Acetaminophen 650 mg 08/23/22 14:00 08/24/22 20:30 Acetaminophen 325 Mg Tablet PO 650 mg Q4H PRN Administration Mild Pain (1-3) or Fever Allopurinol 100 mg 08/24/22 09:00 08/25/22 09:22 Allopurinol 100 Mg Tablet PO 100 mg DAILY JE Administration Amlodipine Besylate 10 mg 08/24/22 09:00 08/25/22 09:21 Amlodipine Besylate 5 Mg Tablet PO 10 mg DAILY EJ Administration Aspirin 81 mg 08/24/22 09:00 08/25/22 09:21 Aspirin 81 Mg Enteric Tablet PO 81 mg DAILY EJ Administration Atorvastatin Calcium 20 mg 08/24/22 09:00 08/25/22 09:22 Atorvastatin 10 Mg Tablet PO 20 mg DAILY EJ Administration Clonidine HCl 0.1 mg 08/23/22 17:00 08/25/22 09:21 Clonidine Hcl 0.1 Mg Tablet PO 0.1 mg
--- NOTE | 2022-08-25 13:10 | HOMEO2EVAL ---
Evaluation was performed at [facility] Home Oxygen Evaluation RC: Home Oxygen (O2) Evaluation Start: 08/25/22 11:02 Freq: ONCE Status: Active Protocol: RPE Activity Type Activity Date Activity User E-sign Co-sign Detail Recorded Client Recorded Date Recorded By Document 08/25/22 12:35 [email or web address] 08/25/22 13:10 SJB Document 08/25/22 12:37 [email or web address] 08/25/22 13:10 SJB Document 08/25/22 12:39 [email or web address] 08/25/22 13:10 SJB Document 08/25/22 12:40 [email or web address] 08/25/22 13:10 SJB Document 08/25/22 12:43 [email or web address] 08/25/22 13:10 SJB Document 08/25/22 12:47 [email or web address] 08/25/22 13:10 SJB 08/25/22 08/25/22 08/25/22 12:35 12:37 12:39 Home O2 Evaluation [Oxygen] -Test Phase Resting Resting Resting -Oxygen Delivery Room Air Nasal Cannula Nasal Cannula -Oxygen Flow Rate (L/min) 1 2 [Pulse Oximetry] -Pulse Oximetry (90-100 %) 80 L 83 L 93 [Pulse Rate] -Pulse Rate (60-100 beats/min) 74 75 73 [Evaluation] -Activity Tolerance -Rating of Perceived Dyspnea (PD) -Rate of Perceived Exertion (PE) 8 Query Text:Click the Protocol Button to View the RPE Scale [Exercise] -Ambulation Distance (feet) -Ambulation Distance (meters) [Comments] -Home Oxygen Evaluation Comments At rest on room At rest on 1 At rest on 2lpm air, Sp02 is lpm, Sp02 is 84 , Sp02 is 93%. 80%. Will %. Will Will begin start pt on 1 increase to 2 exercise. lpm. lpm. [Charges] -Treatment Charges O2 Evaluation - Inpatient 08/25/22 08/25/22 08/25/22 12:40 12:43 12:47 Home O2 Evaluation [Oxygen] -Test Phase Exercise Exercise Exercise -Oxygen Delivery Nasal Cannula Nasal Cannula Nasal Cannula -Oxygen Flow Rate (L/min) 2 3 4 [Pulse Oximetry] -Pulse Oximetry (90-100 %) 93 88 L 92 [Pulse Rate] -Pulse Rate (60-100 beats/min) 73 77 80 [Evaluation] -Activity Tolerance Good Fair Fair -Rating of Perceived Dyspnea (PD) +2 Mild, Some +2 Mild, Some +3 Moderate Difficulty, Difficulty, Difficulty, But Noticeable to Noticeable to Can Continue the Observer the Observer -Rate of Perceived Exertion (PE) 11 Fairly light 12 13 Somewhat Query Text:Click the Protocol Button Hard to View the RPE Scale [Exercise] -Ambulation Distance (feet) 45 55 100 -Ambulation Distance (meters) 13.71 16.76 30.47 [Comments] -Home Oxygen Evaluation Comments After 45 ft, Pt After 55 ft, pt Pt finished 's sp02 dropped 's Sp02 dropped walk on 4 lpm to 86%. Will to 88%. Will with sp02 increase 02 to increase to 4 staying between 3 lpm. lpm. 91-92% HR at 80. Pt walked a total of 200 ft pushing wheelchair. Tolerated fairly well. Uses walker at home. Pt educated on PLB and did well with it. [Charges] -Treatment Charges
[2022-08-25] MEDS: WARFARIN (*PBKC) 2 MG TABLET PO (16:45)
[2022-08-26] VITALS: BP 142/62; PULSE 70; RESP 20; TEMP 37.9; O2SAT 90
--- NOTE | 2022-08-26 00:10 | PC.NURSE ---
Pt voided 200 ml of light yellow, clear urine in the commode. Vital signs taken and oxygen on at 3 liters per nasal cannula and pt doesnt voice any c/o shortness of breath.
--- NOTE | 2022-08-26 01:23 | PC.NURSE ---
Pt up to the commode with standby assist of one and voided 100 ml of light yellow, clear urine. Pt back to bed with standby assist of one. Side rails up x2.
--- NOTE | 2022-08-26 04:15 | PC.NURSE ---
Pt asleep and no signs of discomfort noted. Oxygen remains on at 3 liters per nasal cannula.
--- NOTE | 2022-08-26 05:00 | PC.NURSE ---
Pt up to the commode with assist and voided 100 ml of clear, yellow urine. Pt back to bed with standby assist of one.
[2022-08-26 05:41] LABS: Hematocrit 28.6 % (35.0-42.0); Hemoglobin 8.7 g/dL (11.7-13.8); Mean Corpuscular HGB Conc 30.4 g/dL (32.0-36.0); Mean Corpuscular Hemoglobin 25.6 pg (27.0-31.0); Mean Corpuscular Volume 84.1 fL (78.0-102.0); Platelet Count Result 268 K/mm3 (150-420); Red Cell Distribution Width 16.7 % (11.6-14.4); White Blood Count 9.8 K/mm3 (4.8-10.8)
[2022-08-26 05:51] LABS: INR 2.7; Prothrombin Time 27.7 Seconds (9.50-12.10)
[2022-08-26 05:56] LABS: Alanine Aminotransferase 10 U/L (14-59); Albumin Level 2.5 g/dL (3.4-5.0); Alkaline Phosphatase 112 U/L (46-116); Anion Gap 10 mmol/L (8-16); Aspartate Amino Transferase < 10 U/L (15-37); Bilirubin,Total 0.2 mg/dL (0.00-1.00); Blood Urea Nitrogen 35 mg/dL (7-18); Calcium 7.7 mg/dL (8.5-10.1); Carbon Dioxide 26 mmol/L (21-32); Chloride 108 mmol/L (98-108); Estimated Glomerular Filt Rate 25; Glucose 102 mg/dL (70-99); Osmolality Calculated 306 mOsm/kg (285-295); Potassium 3.8 mmol/L (3.5-5.1); Sodium 144 mmol/L (136-145); Total Protein 5.8 g/dL (6.4-8.2)
[2022-08-26] MEDS: LEVOTHYROXINE SODIUM 25 MCG TABLET PO (06:43)
--- NOTE | 2022-08-26 06:46 | PC.NURSE ---
Pt given synthroid 25 mcg PO as ordered. Pt weighed 63.4 per bed scale.
[2022-08-26 07:33] VITALS: BP 171/66; PULSE 88; RESP 20; TEMP 37.2; O2SAT 94
[2022-08-26] MEDS: ATORVASTATIN 10 MG TABLET 20 MG PO (08:41)
[2022-08-26] MEDS: cloNIDine HCL 0.1 MG TABLET PO (08:41)
[2022-08-26] MEDS: hydroCHLOROthiazide 12.5 MG CAPSULE PO (08:41)
[2022-08-26] MEDS: amLODIPine BESYLATE 5 MG TABLET 10 MG PO (08:42)
[2022-08-26 08:44] VITALS: PULSE 88
[2022-08-26] MEDS: METOPROLOL SUCCINATE EXT REL 25 MG TABCR PO (08:44)
[2022-08-26] MEDS: allopurinoL 100 MG TABLET PO (08:44)
[2022-08-26] MEDS: PANTOPRAZOLE 40 MG TABLET PO (08:44)
[2022-08-26] MEDS: FUROSEMIDE INJ 20 MG/2 ML VIAL IV PUSH (08:46)
[2022-08-26] MEDS: ASPIRIN 81 MG ENTERIC TABLET PO (08:46)
[2022-08-26 08:47] LABS: Magnesium 1.5 mg/dL (1.8-2.4)
[2022-08-26] MEDS: MAGNESIUM OXIDE 400 MG TABLET PO (09:38)
--- NOTE | 2022-08-26 09:48 | PM.DS ---
DS: Admitting Diagnosis Discharge Date 08/26/2022 Admitting Diagnosis uncompensated congestive heart failure, UTI DS: Discharge Diagnosis Discharge Diagnosis (1) Congestive heart failure: Qualifiers: Heart failure chronicity: acute Heart failure type: systolic Qualified Code(s): I50.21 - Acute systolic (congestive) heart failure Code(s): I50.9 - Heart failure, unspecified Status: Acute Assessment and Plan: BNP greater than 10,000 patient will discharge home with Lasix 20 mg daily. she will need to follow up with her pcp patient requires oxygen 2 L nasal cannula with rest and 4 L with ambulation patient will discharge home with Lasix 20 mg daily (2) Acute UTI: Code(s): N39.0 - Urinary tract infection, site not specified Status: Acute Assessment and Plan: UA positive for protein rbc's wbc's and bacteria UA with the growth of Gram-negative bacilli patient will discharge home with doxycycline (3) Fatigue: Code(s): R53.83 - Other fatigue Status: Acute Assessment and Plan: PT and OT to evaluate and treat (4) Hyperlipidemia: Code(s): E78.5 - Hyperlipidemia, unspecified Status: Chronic Assessment and Plan: continue home medication (5) Hypertension: Code(s): I10 - Essential (primary) hypertension Status: Chronic Assessment and Plan: monitor vitals as scheduled blood pressure stable continue home medication (6) Hypothyroidism: Code(s): E03.9 - Hypothyroidism, unspecified Status: Chronic Assessment and Plan: continue home medication (7) Supratherapeutic INR: Code(s): R79.1 - Abnormal coagulation profile Status: Acute Assessment and Plan: INR 4.2>4.3.3.1>2.7 warfarin held resume on discharge patient will need to follow up with her primary care physician PT INR ordered to be completed in 3 days with results going to primary care physician DS: Summary Hospital Course Reason for hospitalization: Shortness of breath dyspnea Hospital Course: This 82-year-old female presented to the emergency room complaining of shortness of breath.? Patient has a past medical history of hypertension, acid reflux, hypothyroidism, congestive heart failure, hyperlipidemia patient is on anticoagulation taking Coumadin with the INR of 4.2 INR currently within normal limits repeat INR in 3 days with results going to primary care physician.?home O2 evaluation completed patient will discharge home with oxygen at 2 L at rest and 4 L with activity. Patient found to have urinary tract infection with Gram-negative bacilli patient with discharge home with doxycycline. patient currently not complaining of shortness of breath with the use of oxygen. The patient denies SOB, CP, palpitation, extremity numbness, lightheadedness, dizziness, constipation, diarrhea, chills, or fever. Discharge instructions reviewed with patient, as well as provided in writing per nursing staff. The instructions also include specific and strict return/GO TO THE ER as well as f/u information. All questions have been answered, and the patient and/or family deny any further questions with discharge and discharge plan. Time Spent with Patient Time attestation: Total time spent providing and/or coordinating discharge services: Exam Narrative: GENERAL: well-nourished, and in no acute distress. HEAD:Normocephalic, atraumatic. EYES: PERRLA ENT: Nares clear, no rhinorrhea or epistaxis. Mucous membranes moist. CHEST: Clear to diminshed auscultation. mild respiratory distress.Hyperventilation HEART: irregularRegular rate and rhythm. Normal peripheral pulses. ABDOMEN: Soft, nontender, nondistended, normal active bowel sounds. EXTREMITIES: Normal range of motion. trace edema. SKIN: Warm, dry, no rash. NEURO: No focal deficits. Alert and oriented x3. DS: Data Data Completed and Pending Labs on day of
--- NOTE | 2022-08-26 11:49 | PC.NURSE ---
Assisted patient to dress, saline lock removed, tolerated well
[2022-08-26 14:45] VITALS: O2SAT 90
--- NOTE | 2022-08-26 14:45 | PC.NURSE ---
Discharge via wheel chair to home, alert and oriented x4, agreeable to discharge, apria here and oxygen for home set up completed, no questions or concerns regarding instructions. to take discharge summary to cardiology appointment tomorrow
--- NOTE | 2022-08-27 09:49 | PC.NURSE ---
Spouse states they received and understood the discharge instructions. Spouse also states you guys did a great job .
== END 2022-08-26 14:45 | disposition home or self-care (01) | DRG 291 ==
LOC: CHSED 13:17 → CHS2ND 14:11
PROVIDERS: Nurse Practitioner; Nurse Practitioner Family; Admitting Provider Internal Medicine; Emergency Provider Emergency Medicine; PCP Family Medicine; Visit Provider Internal Medicine
DX: I13.0 Hypertensive heart and chronic kidney disease with heart failure and stage 1 through stage 4 chronic kidney disease, or unspecified chronic kidney disease (principal); I50.23 Acute on chronic systolic (congestive) heart failure; N39.0 Urinary tract infection, site not specified; N18.30 Chronic kidney disease, stage 3 unspecified; E78.5 Hyperlipidemia, unspecified; E03.9 Hypothyroidism, unspecified; M19.90 Unspecified osteoarthritis, unspecified site; B96.89 Other specified bacterial agents as the cause of diseases classified elsewhere; I27.20 Pulmonary hypertension, unspecified; I25.2 Old myocardial infarction; Z96.659 Presence of unspecified artificial knee joint; Z86.718 Personal history of other venous thrombosis and embolism
CPT/HCPCS: 36415; 71046; 80048; 80053; 81001; 83735; 83880; 84484; 85025; 85027; 85610; 87077; 87086; 87088; 87186; 87502; 93005; 94618; 96365; 96375; 96376; 99285; A9270; G0378; J0696; J1940; J3475; U0003; U0005

== ENCOUNTER 2022-08-31 10:55 | Outpatient (RCR) | payer MEDICARE, SELFPAY ==
[2022-06-24 11:04] LABS: INR 2.4; Prothrombin Time 24.4 Seconds (9.50-12.10)
[2022-07-22 09:41] LABS: INR 3.4; Prothrombin Time 34.1 Seconds (9.50-12.10)
[2022-08-05 10:41] LABS: INR 2.7
[2022-08-31 11:17] LABS: INR 1.9; Prothrombin Time 19.8 Seconds (9.50-12.10)
== END 2022-09-22 23:59 | disposition home or self-care (01) ==
LOC: CHSLAB 10:55
PROVIDERS: PCP Family Medicine; Visit Provider Family Medicine
DX: Z51.81 Encounter for therapeutic drug level monitoring (principal); Z79.01 Long term (current) use of anticoagulants
CPT/HCPCS: 36415; 85610

== ENCOUNTER 2022-09-14 14:26 | Outpatient (CLI) | payer MEDICARE, SELFPAY ==
[2022-09-14 15:16] LABS: Anion Gap 7 mmol/L (8-16); Blood Urea Nitrogen 36 mg/dL (7-18); Carbon Dioxide 29 mmol/L (21-32); Chloride 106 mmol/L (98-108); Estimated Glomerular Filt Rate 24; Glucose 116 mg/dL (70-99); NT Pro B Type Natriuretic Pept 7022 pg/mL (0-450); Osmolality Calculated 303 mOsm/kg (285-295); Potassium 4.3 mmol/L (3.5-5.1); Sodium 142 mmol/L (136-145)
--- NOTE | 2022-09-14 15:30 | ECHO_ITS ---
Patient Info Name: Lu Galeano Age: 82 years : 1940 Gender: Female Ht: 59 in Wt: 130 lbs BSA: 1.58 m2 HR: 72 bpm BP: 206 / 75 mmHg Technical Quality: Good Exam Date: 09/14/2022 3:34 PM Exam Location: [facility] Patient Status: Outpatient Admit Date: 09/14/2022 Staff Ordering Physician: Trav Mccabe MD Fleet Manager/Dispatch: Jimi Dickson RDCS, RT Attending Provider: Trav Mccabe MD Referring Physician: Estelle DICKENS; Exam Type: CA echo doppler color flow Study Info Indications R06.00 - Dyspnea, unspecified Complete two-dimensional, color flow and Doppler transthoracic echocardiogram is performed. Strain analysis performed. History/Risk Factors Hypertension: Yes Dyslipidemia: Yes Peripheral Arterial Disease (PAD): No Myocardial Infarction (NM): Yes Chronic Lung Disease: No Renal Disease: No Congestive Heart Failure (CHF): Hx CHF Cardiomyopathy/LV Systolic Dysfunction: No Diabetes Mellitus: No COPD: No Tobacco Use: Never Cerebrovascular Disease: No DVT Treatment: Warfarin Deep Vein Thrombosis (DVT): Acute Dialysis: None Frailty Scale (CSHA): 3: Managing Well Summary 1. Complete two-dimensional, color flow and Doppler transthoracic echocardiogram is performed. 2. Left ventricular chamber dimension is normal. 3. Left ventricular systolic function is normal, estimated at 55-60%. 4. The left ventricular diastolic function is grade I diastolic dysfunction. 5. E/e' 22 is elevated. 6. Global longitudinal strain is normal at -20.0%. 7. Left atrial chamber dimension is moderately enlarged. 8. There is moderate aortic valve sclerosis. 9. The mitral valve has moderately thickened leaflets and severely calcified annulus. 10. There is mild mitral valve regurgitation. 11. There is mild to moderate tricuspid valve regurgitation. 12. Severe pulmonary hypertension, estimated pulmonary arterial systolic pressure is 105 mmHg. 13. There is trace pulmonic regurgitation. Left Ventricle E/e' 22 is elevated. Global longitudinal strain is normal at -20.0%. Left ventricular chamber dimension is normal. Left ventricular systolic function is normal, estimated at 55-60%. The left ventricular diastolic function is grade I diastolic dysfunction. Right Ventricle Right ventricular systolic function is normal and with normal TAPSE 2.1 cm. Right ventricular chamber dimension is normal. Left Atria Left atrial chamber dimension is moderately enlarged. Right Atria Right atrial chamber dimension is normal. Aortic Valve The aortic valve is trileaflet. There is moderate aortic valve sclerosis. There is no aortic valve stenosis. There is no aortic valve regurgitation. Pulmonic Valve There is trace pulmonic regurgitation. Mitral Valve The mitral valve has moderately thickened leaflets and severely calcified annulus. There is no mitral valve stenosis. There is mild mitral valve regurgitation. Tricuspid Valve There is mild to moderate tricuspid valve regurgitation. Severe pulmonary hypertension, estimated pulmonary arterial systolic pressure is 105 mmHg. Pericardium/Pleural There is no pericardial effusion. Inferior Vena Cava Normal inferior vena cava with >50% collapse upon inspiration consistent with normal right atrial pressure, 5 mmHg. Aorta The aortic root size at the sinus of Valsalva is normal. Left Ventricular Outflow Tract
== END 2022-09-14 14:27 | disposition home or self-care (01) ==
LOC: CHSIMG 14:27
PROVIDERS: PCP Family Medicine
DX: I50.9 Heart failure, unspecified (principal)
CPT/HCPCS: 36415; 80048; 83880; 93306

== ENCOUNTER 2022-10-27 09:31 | Outpatient (RCR) | payer MEDICARE, SELFPAY ==
[2022-09-23 09:51] LABS: INR 2.8; Prothrombin Time 28.3 Seconds (9.50-12.10)
[2022-10-27 10:02] LABS: INR 2.5; Prothrombin Time 25.7 Seconds (9.50-12.10)
== END 2022-12-22 23:59 | disposition home or self-care (01) ==
LOC: CHSLAB 09:31
PROVIDERS: PCP Family Medicine; Visit Provider Family Medicine
DX: Z51.81 Encounter for therapeutic drug level monitoring (principal); I82.409 Acute embolism and thrombosis of unspecified deep veins of unspecified lower extremity; Z79.01 Long term (current) use of anticoagulants
CPT/HCPCS: 36415; 85610

== ENCOUNTER 2022-11-19 13:48 | Emergency (ER) | payer MEDICARE, SELFPAY ==
--- NOTE | ~2022-11-19 | XR_ITS ---
EXAMINATION: XR chest 1V portable DATE: 11/19/2022 14:39 INDICATION: Dyspnea. Cough. TECHNIQUE: A single frontal view of the chest was obtained. COMPARISON: Chest 2 views 08/23/2022, chest CT 05/26/2022 FINDINGS: There are interstitial opacities in the mid and lower lung zones. No pleural effusion or pn eumothorax. Cardiomegaly is noted. There is a large hiatal hernia. IMPRESSION: 1. Interstitial opacities in the lower lung zones, consistent with mild chronic interstitial lung dis ease without or with superimposed mild pulmonary edema. 2. Cardiomegaly. 3. Large hiatal hernia. Reviewed, dictated and finalized at location A. BREEDER IMPRESSION: 1. Interstitial opacities in the lower lung zones, consistent with mild chronic interstitial lung disease without or with superimposed mild pulmonary edema. 2. Cardiomegaly. 3. Large hiatal hernia.
[2022-11-19 13:53] VITALS: BP 181/73; PULSE 73; RESP 16; TEMP 36; O2SAT 100
[2022-11-19 15:25] LABS: Basophils Absolute Auto 0.03 K/mm3 (0.00-0.10); Basophils Percent Auto 0.3 % (0.0-1.0); Eosinophils Absolute Auto 0.17 K/mm3 (0.02-0.50); Eosinophils Percent Auto 1.9 % (1.0-6.0); Hematocrit 30.2 % (35.0-42.0); Hemoglobin 9.4 g/dL (11.7-13.8); Immature Granulocyte Absolute 0.04 K/mm3 (0.00-0.00); Immature Granulocyte Percent A 0.5 % (0.0-0.0); Lymphocytes Absolute Auto 0.82 K/mm3 (1.10-4.50); Lymphocytes Percent Auto 9.4 % (18.0-42.0); Mean Corpuscular HGB Conc 31.1 g/dL (32.0-36.0); Mean Corpuscular Hemoglobin 27.5 pg (27.0-31.0); Mean Corpuscular Volume 88.3 fL (78.0-102.0); Mean Platelet Volume 10.2 fl (9.2-11.8); Monocytes Absolute Auto 0.68 K/mm3 (0.10-0.90); Monocytes Percent Auto 7.8 % (2.0-11.0); Neutrophils Percent Auto 80.1 % (50.0-70.0); Platelet Count Result 298 K/mm3 (150-420); Red Blood Count 3.42 M/mm3 (4.20-5.40); Red Cell Distribution Width 23.7 % (11.6-14.4); White Blood Count 8.7 K/mm3 (4.8-10.8)
[2022-11-19 15:53] LABS: Lactic Acid Reflex 1.6 mmol/L (0.4-2.0)
[2022-11-19 15:55] LABS: Alanine Aminotransferase 15 U/L (14-59); Albumin Level 2.4 g/dL (3.4-5.0); Alkaline Phosphatase 93 U/L (46-116); Anion Gap 6 mmol/L (8-16); Aspartate Amino Transferase 20 U/L (15-37); Bilirubin,Total 0.3 mg/dL (0.00-1.00); Blood Urea Nitrogen 36 mg/dL (7-18); Calcium 8.4 mg/dL (8.5-10.1); Carbon Dioxide 32 mmol/L (21-32); Chloride 100 mmol/L (98-108); Estimated Glomerular Filt Rate 16; Glucose 163 mg/dL (70-99); NT Pro B Type Natriuretic Pept > 35000 pg/mL (0-450); Osmolality Calculated 298 mOsm/kg (285-295); Potassium 4.6 mmol/L (3.5-5.1); Sodium 138 mmol/L (136-145); Total Protein 5.9 g/dL (6.4-8.2)
[2022-11-19 16:12] LABS: Influenza A QL RT-PCR Negative (Negative); Influenza B QL RT-PCR Negative (Negative); SARS-CoV-2 RNA PCR Negative (Negative)
--- NOTE | 2022-11-19 16:12 | ECG_ITS ---
Measurements Intervals [place] Rate: 69 P: 9 CT: 193 QRS: -2 QRSD: 94 T: 90 QT: 398 QTc: 429 Interpretive Statements SINUS RHYTHM PREVIOUS ANTERIOR WALL TX ABNORMAL ECG LOSS OF R-WAVE VOLTAGE IN V2 V3, INTERVAL INFARCTION VERSUS SLIGHTLY DIFFERENT LEAD PLACEMENT COMPARED TO ECG 08/23/2022 11:43:06 LOSS OF R-WAVE VOLTAGE PRECORDIAL LEADS DESCRIBED ABOVE Electronically Signed On 11-20-2022 15:44:27 FILLING WINDER by Delmar Manuel M.D.
[2022-11-19 16:21] LABS: RSV RNA, RT-PCR Negative (Negative)
[2022-11-19 16:50] LABS: Troponin I 69.1 ng/L (0.00-60.4)
--- NOTE | 2022-11-19 16:50 | PC.NURSE ---
elevated troponin 69, erp is made aware.
[2022-11-19 17:00] VITALS: BP 150/89; PULSE 80; RESP 20; O2SAT 94
--- NOTE | 2022-11-19 17:12 | ECG_ITS ---
Measurements Intervals [place] Rate: 69 P: 13 AR: 189 QRS: 22 QRSD: 87 T: 100 QT: 400 QTc: 430 Interpretive Statements SINUS RHYTHM PREVIOUS ANTERIOR WALL IN COMPARED TO ECG 11/19/2022 16:22:32 NO SIGNIFICANT CHANGES Electronically Signed On 11-20-2022 15:44:47 [employer]ERICULTURIST by Delmar Manuel M.D.
[2022-11-19 17:46] LABS: CRP 0.6 mg/dL (0.0-0.9)
[2022-11-19 18:00] VITALS: BP 140/90; PULSE 82; RESP 16; O2SAT 94
--- NOTE | 2022-11-19 18:46 | PC.NURSE ---
Elevated troponin of 67. Erp is aware.
[2022-11-19 19:00] VITALS: RESP 20
--- NOTE | 2022-11-19 19:12 | ED.RECABL ---
HPI - Recheck/Abnormal Lab/Rx General Chief Complaint: Recheck/Abnormal Lab/Rx Stated Complaint: abnormal labs Time Seen by Provider: 11/19/22 14:00 Source: patient and family Mode of arrival: ambulatory Limitations: no limitations History of Present Illness HPI narrative: patient presents with abnormal labs by her sent over by her primary care physician has a history of CHF with grade 1 diastolic dysfunction an echocardiogram in 2021 with an ejection fraction of 55 to 60% currently the patient presents from the nursing with abnormal labs the patient had a creatinine of 2.78, but currently in no acute distress no shortness of breath no chest pain no chest pressure no orthopnea no fever chills. Related Data Home Medications Medication Instructions Recorded Confirmed aspirin 81 mg tablet,delayed 81 mg PO DAILY 10/18/19 08/23/22 release (Ecotrin Low Strength) calcium carbonate 600 mg-vitamin 1 tablet PO BID 10/18/19 08/23/22 D3 20 mcg (800 unit) chewable tablet (Caltrate 600 plus D) omeprazole magnesium 20 mg 20 mg PO DAILY 10/18/19 08/23/22 tablet,delayed release (Prilosec OTC) vitamins A,C,D-meog-obatws 4,296 1 cap PO BID 04/01/22 08/23/22 mcg-226 mg-90 mg capsule (PreserVision AREDS) allopurinol 100 mg tablet 100 mg PO DAILY 04/22/22 08/23/22 hydrochlorothiazide 12.5 mg capsule 12.5 mg PO DAILY 04/22/22 08/23/22 Allergies Allergy/AdvReac Type Severity Reaction Status Date / Time fentanyl Allergy Intermediate Unknown Verified 11/19/22 08:40 tramadol Allergy Intermediate Unknown Verified 11/19/22 08:40 adhesive Allergy Mild Unknown Verified 11/19/22 08:40 Sulfa (Sulfonamide Allergy Mild unknown Verified 11/19/22 08:40 Antibiotics) Sulfonamides Allergy Intermediate Unknown Uncoded 11/19/22 08:40 Review of Systems Review of Systems: All systems reviewed & are unremarkable except as noted in HPI and below PMFSH Past Medical History Medical History Abnormality of gait and mobility Chronic diarrhea CKD (chronic kidney disease) stage 3, GFR 30-59 ml/min Congestive heart failure (CHF) DVT (deep venous thrombosis) Hyperlipidemia Hypertension Hypothyroidism Left leg weakness Myocardial infarction Osteoarthritis Pulmonary hypertension Surgical History Surgical History History of hysterectomy History of knee replacement Hx laparoscopic cholecystectomy Family History Family History Mother Cerebrovascular accident Father Congestive heart failure Sibling Cancer Social History Social History Smoking status: Never smoker Second hand tobacco smoke exposure: Yes Alcohol intake: never Substance use: never Substance use type: does not use Lack of Transportation: No Lack of Food: Never True Current Housing: I Have Housing Concerned About Future Housing: No Difficulty Paying Gas/Electric Bills: No Difficulty Paying for Meds: No Currently Unemployed: No Education: Bachelor's Degree Difficulty w/ Childcare or Family Care: No Living arrangements: with family Occupation/Education: retired Gender identity (if verbalized by the patient): Female Spiritual care concerns: No Exam Const: General: healthy appearing Nutritional Appearance: well nourished Orientation/consciousness: patient oriented x3 Limitations: no limitations HENMT: Head: normal to inspection Face/Nose/Sinus: Normal external nose present Face and sinus: normal facial exam Mouth: Yes Normal oral and palatal mucosa present Eyes: Conjunctivae: conjunctivae normal Pupils: Equal, round and reactive pupils present Neck: Neck: normal visual inspection Chest: Chest palpation & inspection: normal inspection of the chest Resp: Effort & Inspection: normal respiratory effort
[2022-11-19 19:23] VITALS: BP 140/90; PULSE 78; RESP 16; O2SAT 94
[2022-11-19 20:30] VITALS: BP 139/90; PULSE 89; RESP 20; TEMP 37.2; O2SAT 94
--- NOTE | 2022-11-25 12:15 | PC.NURSE ---
FINAL BLOOD CULTURE RESULTS X2: NO GROWTH AFTER 5 DAYS. NO ACTION NEEDED.
== END 2022-11-19 20:30 ==
PROVIDERS: Emergency Provider Emergency Medicine; PCP Family Medicine
DX: I13.0 Hypertensive heart and chronic kidney disease with heart failure and stage 1 through stage 4 chronic kidney disease, or unspecified chronic kidney disease (principal); I50.32 Chronic diastolic (congestive) heart failure; N18.4 Chronic kidney disease, stage 4 (severe); E78.5 Hyperlipidemia, unspecified; E03.9 Hypothyroidism, unspecified; I25.2 Old myocardial infarction; M19.90 Unspecified osteoarthritis, unspecified site; Z86.718 Personal history of other venous thrombosis and embolism; Z79.82 Long term (current) use of aspirin; Z79.01 Long term (current) use of anticoagulants; Z20.822 Contact with and (suspected) exposure to COVID-19
CPT/HCPCS: 36415; 71045; 80053; 83605; 83880; 84484; 85025; 86140; 87040; 87637; 93005; 99284

== ENCOUNTER 2022-12-15 14:05 | Outpatient (CLI) | payer MEDICARE, SELFPAY | END 2022-12-15 14:06 | disposition home or self-care (01) | PROVIDERS: PCP Family Medicine; Visit Provider Specialist | DX: C44.219 Basal cell carcinoma of skin of left ear and external auricular canal (principal) | CPT/HCPCS: 88305 ==

== ENCOUNTER 2023-01-06 10:50 | Outpatient (CLI) | payer MEDICARE, SELFPAY ==
[2023-01-06 11:29] LABS: Prothrombin Time 56.9 Seconds (9.50-12.10)
[2023-01-06 12:03] LABS: Vitamin B12 708 pg/mL (193-986)
== END 2023-01-06 10:51 | disposition home or self-care (01) ==
LOC: CHSLAB 10:52
PROVIDERS: PCP Family Medicine; Visit Provider Internal Medicine Nephrology
DX: Z79.01 Long term (current) use of anticoagulants (principal); D63.1 Anemia in chronic kidney disease
CPT/HCPCS: 36415; 82607; 85610

== ENCOUNTER 2023-02-24 09:23 | Outpatient (RCR) | payer MEDICARE, SELFPAY ==
[2022-12-23 09:48] LABS: INR 1.8; Prothrombin Time 18.4 Seconds (9.50-12.10)
[2023-01-08 10:25] LABS: INR 2.9; Prothrombin Time 29.3 Seconds (9.50-12.10)
[2023-01-19 11:03] LABS: Prothrombin Time 79.5 Seconds (9.50-12.10)
[2023-01-19 11:07] LABS: INR 8.6
[2023-01-22 10:15] LABS: INR 1.7
[2023-01-29 12:04] LABS: INR 1.6; Prothrombin Time 17.2 Seconds (9.50-12.10)
[2023-02-12 15:29] LABS: INR 2.3; Prothrombin Time 23.9 Seconds (9.50-12.10)
[2023-02-24 10:01] LABS: INR 1.9; Prothrombin Time 20.1 Seconds (9.50-12.10)
== END 2023-03-23 23:59 | disposition home or self-care (01) ==
LOC: CHSLAB 09:23
PROVIDERS: PCP Family Medicine; Visit Provider Family Medicine
DX: Z51.81 Encounter for therapeutic drug level monitoring (principal); Z79.01 Long term (current) use of anticoagulants
CPT/HCPCS: 36415; 85610

== ENCOUNTER 2023-03-24 09:39 | Outpatient (CLI) | payer MEDICARE, SELFPAY ==
[2023-03-24 10:02] LABS: Basophils Absolute Auto 0.04 K/mm3 (0.00-0.10); Basophils Percent Auto 0.5 % (0.0-1.0); Eosinophils Absolute Auto 0.41 K/mm3 (0.02-0.50); Eosinophils Percent Auto 5.3 % (1.0-6.0); Hemoglobin 10.4 g/dL (11.7-13.8); Immature Granulocyte Absolute 0.02 K/mm3 (0.00-0.00); Immature Granulocyte Percent A 0.3 % (0.0-0.0); Lymphocytes Absolute Auto 1.62 K/mm3 (1.10-4.50); Lymphocytes Percent Auto 20.9 % (18.0-42.0); Mean Corpuscular HGB Conc 32.5 g/dL (32.0-36.0); Mean Corpuscular Hemoglobin 29.6 pg (27.0-31.0); Mean Corpuscular Volume 91.2 fL (78.0-102.0); Mean Platelet Volume 9.7 fl (9.2-11.8); Monocytes Absolute Auto 0.54 K/mm3 (0.10-0.90); Neutrophils Absolute Auto 5.1 K/mm3 (1.7-7.2); Platelet Count Result 243 K/mm3 (150-420); Red Blood Count 3.51 M/mm3 (4.20-5.40); Red Cell Distribution Width 15.9 % (11.6-14.4); White Blood Count 7.8 K/mm3 (4.8-10.8)
[2023-03-24 10:14] LABS: Hemoglobin A1C 5.7 % (<5.7)
[2023-03-24 10:18] LABS: INR 2.3; Prothrombin Time 23.5 Seconds (9.50-12.10)
[2023-03-24 10:35] LABS: Albumin Level 3.2 g/dL (3.4-5.0); Anion Gap 15 mmol/L (8-16); Blood Urea Nitrogen 101 mg/dL (7-18); Calcium 7.6 mg/dL (8.5-10.1); Carbon Dioxide 17 mmol/L (21-32); Chloride 107 mmol/L (98-108); Estimated Glomerular Filt Rate 7; Glucose 99 mg/dL (70-99); Iron 49 ug/dL (50-170); Osmolality Calculated 319 mOsm/kg (285-295); Percent Iron Saturation 17 % (12-57); Phosphorus 5.2 mg/dL (2.6-4.7); Potassium 5.8 mmol/L (3.5-5.1); Sodium 139 mmol/L (136-145)
[2023-03-28 21:49] LABS: Parathyroid Intact 229 pg/mL (14-64)
== END 2023-03-24 09:40 | disposition home or self-care (01) ==
LOC: CHSLAB 09:41
PROVIDERS: PCP Family Medicine; Visit Provider Internal Medicine Nephrology
DX: N18.4 Chronic kidney disease, stage 4 (severe) (principal); D63.1 Anemia in chronic kidney disease; N25.81 Secondary hyperparathyroidism of renal origin; I10 Essential (primary) hypertension; I12.9 Hypertensive chronic kidney disease with stage 1 through stage 4 chronic kidney disease, or unspecified chronic kidney disease; Z79.01 Long term (current) use of anticoagulants; R73.03 Prediabetes
CPT/HCPCS: 36415; 80069; 82570; 83036; 83540; 83550; 83970; 84156; 85025; 85610

== ENCOUNTER 2023-03-26 10:35 | Outpatient (CLI) | payer MEDICARE, SELFPAY ==
--- NOTE | ~2023-03-26 | US_ITS ---
Renal-Bladder ultrasound Clinical History: Acute renal failure Technique: Real-time sonographic imaging of the kidneys and urinary bladder was performed. Findings: The right kidney measures 8.6 cm in length and the left kidney measures 8.3 cm. There is no hydronephrosis or renal calculus identified. Renal cortical echogenicity is increased. No solid paulina l mass lesion is identified. The urinary bladder is partially distended at the time of this exam. No intraluminal echoes are ident ified. No abnormal wall thickening is seen. Impression: Echogenic kidneys suggest chronic medical renal disease. No hydronephrosis. Reviewed, dictated and finalized at location . Impression: Echogenic kidneys suggest chronic medical renal disease. No hydronephrosis.
[2023-03-26 10:56] LABS: Bilirubin Urine Negative (Negative); Blood Urine Trace-Intact (Negative); Color Urine Light Yellow (Yellow); Glucose Urine UA Negative (Negative); Ketones Urine Negative (Negative); Leukocyte Esterase Ur 3+ (Negative); Nitrate Urine Negative (Negative); Protein Urine 2+ (Negative); Specific Grav Ur 1.015 (1.010-1.020); Urobilinogen Urine 0.2 mg/dL (0.2-1.0)
[2023-03-26 11:01] LABS: Add Urine Microscopic? YES; Appearance Urine Slightly Cloudy (Clear); Bacteria Urine 1+ /hpf; RBC Urine None seen /hpf (0-2); Squamous Epithelial Cell Urine Few /hpf (Few); WBC Urine >100 /hpf (0-3)
[2023-03-26 11:04] LABS: Total Protein Urine Random 140.6 mg/dL (0.0-11.9)
== END 2023-03-26 10:36 | disposition home or self-care (01) ==
LOC: CHSIMG 10:37
PROVIDERS: PCP Family Medicine; Visit Provider Internal Medicine Nephrology
DX: R35.1 Nocturia (principal); R39.11 Hesitancy of micturition; N17.9 Acute kidney failure, unspecified; I10 Essential (primary) hypertension
CPT/HCPCS: 76775; 81001; 82570; 84156; 87077; 87086; 87088; 87186

== ENCOUNTER 2023-04-14 10:18 | Outpatient (CLI) | payer MEDICARE, SELFPAY ==
--- NOTE | ~2023-04-14 | CT_ITS ---
EXAMINATION: CT abdomen pelvis wo con DATE: 04/14/2023 15:11 INDICATION: Unintentional weight loss. Stage V kidney disease. Constipation. TECHNIQUE: Computed tomography (CT) of the abdomen and pelvis was performed without intravenous contr ast. Automated exposure control and iterative reconstruction technique were employed. Exam dose: 189 .60 mGy-cm total exam DLP. COMPARISON: 03/26/2023 bilateral renal ultrasound examination 09/27/2021 CT abdomen pelvis FINDINGS: Probable chronic primarily peripheral pulmonary interstitial fibrosis at the lower lung zon es. Cardiomegaly. No pericardial effusion. Slight pleural effusions. Large sliding hiatal hernia. Status post cholecystectomy. No hepatic, splenic, pancreatic, and adrenal or apparent renal space-occ upying mass lesion is noted on this limited noncontrast examination. There is extensive abdominal aortic and iliac and femoral arterial calcification; no abdominal aortic aneurysm. Pelvic floor relaxation is noted. Diverticulosis of the colon; no CT evidence of diverticulitis. No bowel obstruction or intraperitonea l free air is detected. Old healed left posterior 10th and 11th rib fractures. Severe degenerative disc disease of the lower thoracic and throughout the lumbar spine, with associat ed 3.8 mm retrolisthesis at L1-2.. Prominent degenerative change at the apophyseal joints with associ ated grade 1 anterolisthesis at L4-5. IMPRESSION: Large sliding hiatal hernia Cardiomegaly Probable chronic interstitial pulmonary fibrotic changes Status post cholecystectomy Diverticulosis of the colon; no evidence of diverticulitis Prominent amount of fecal material in the rectum and colon suggesting constipation Extensive degenerative changes of the lower thoracic and lumbar spine Reviewed, dictated and finalized at Location [facility]. Reviewed, dictated and finalized at location B. IMPRESSION: Large sliding hiatal hernia Cardiomegaly Probable chronic interstitial pulmonary fibrotic changes Status post cholecystectomy Diverticulosis of the colon; no evidence of diverticulitis Prominent amount of fecal material in the rectum and colon suggesting constipat ion Extensive degenerative changes of the lower thoracic and lumbar spine
[2023-04-14 10:41] LABS: Basophils Absolute Auto 0.04 K/mm3 (0.00-0.10); Basophils Percent Auto 0.6 % (0.0-1.0); Eosinophils Absolute Auto 0.41 K/mm3 (0.02-0.50); Hematocrit 30.6 % (35.0-42.0); Hemoglobin 9.7 g/dL (11.7-13.8); Immature Granulocyte Absolute 0.02 K/mm3 (0.00-0.00); Immature Granulocyte Percent A 0.3 % (0.0-0.0); Lymphocytes Absolute Auto 1.61 K/mm3 (1.10-4.50); Lymphocytes Percent Auto 23.7 % (18.0-42.0); Mean Corpuscular HGB Conc 31.7 g/dL (32.0-36.0); Mean Corpuscular Hemoglobin 29.2 pg (27.0-31.0); Mean Corpuscular Volume 92.2 fL (78.0-102.0); Mean Platelet Volume 10.2 fl (9.2-11.8); Monocytes Percent Auto 5.9 % (2.0-11.0); Neutrophils Absolute Auto 4.3 K/mm3 (1.7-7.2); Neutrophils Percent Auto 63.5 % (50.0-70.0); Platelet Count Result 256 K/mm3 (150-420); Red Blood Count 3.32 M/mm3 (4.20-5.40); Red Cell Distribution Width 15.2 % (11.6-14.4); White Blood Count 6.8 K/mm3 (4.8-10.8)
[2023-04-14 10:47] LABS: Appearance Urine Clear (Clear); Bilirubin Urine Negative (Negative); Blood Urine Negative (Negative); Color Urine Light Yellow (Yellow); Glucose Urine UA Negative (Negative); Ketones Urine Negative (Negative); Leukocyte Esterase Ur Negative LEU/UL (Negative); Nitrate Urine Negative (Negative); Protein Urine 2+ (Negative); Specific Grav Ur 1.025 (1.010-1.020); Urobilinogen Urine 0.2 mg/dL (0.2-1.0); pH Urine 5.5 (5.0-8.0)
[2023-04-14 10:50] LABS: Creatinine Urine 63.45 mg/dL (40-278); Total Protein Urine Random 149.6 mg/dL (0.0-11.9); Ur Ttl Prot Creatinine Ratio 2.36 mg/mg (0-0.20)
[2023-04-14 11:11] LABS: Anion Gap 13 mmol/L (8-16); Blood Urea Nitrogen 91 mg/dL (7-18); Calcium 7.8 mg/dL (8.5-10.1); Carbon Dioxide 22 mmol/L (21-32); Chloride 107 mmol/L (98-108); Estimated Glomerular Filt Rate 8; Glucose 99 mg/dL (70-99); Osmolality Calculated 322 mOsm/kg (285-295); Phosphorus 5.6 mg/dL (2.6-4.7); Potassium 5.1 mmol/L (3.5-5.1); Sodium 142 mmol/L (136-145)
[2023-04-14 11:15] LABS: Add Urine Microscopic? YES; Bacteria Urine Trace /hpf; RBC Urine 0-2 /hpf (0-2); Squamous Epithelial Cell Urine Many /hpf (Few); WBC Urine 0-3 /hpf (0-3)
== END 2023-04-14 10:19 | disposition home or self-care (01) ==
PROVIDERS: PCP Family Medicine; Visit Provider Internal Medicine Nephrology
DX: N18.5 Chronic kidney disease, stage 5 (principal); D63.1 Anemia in chronic kidney disease; I10 Essential (primary) hypertension; I50.22 Chronic systolic (congestive) heart failure; I12.0 Hypertensive chronic kidney disease with stage 5 chronic kidney disease or end stage renal disease; K44.9 Diaphragmatic hernia without obstruction or gangrene; I51.7 Cardiomegaly; Z90.49 Acquired absence of other specified parts of digestive tract; K57.30 Diverticulosis of large intestine without perforation or abscess without bleeding
CPT/HCPCS: 36415; 74176; 80069; 81001; 82570; 84156; 85025

== ENCOUNTER 2023-06-23 09:48 | Outpatient (RCR) | payer MEDICARE, SELFPAY ==
[2023-04-22 10:34] LABS: INR 1.5; Prothrombin Time 16.1 Seconds (9.50-12.10)
[2023-05-26 10:19] LABS: INR 1.4; Prothrombin Time 15.1 Seconds (9.50-12.10)
[2023-06-23 10:23] LABS: INR 1.7; Prothrombin Time 17.7 Seconds (9.50-12.10)
== END 2023-07-21 23:59 | disposition home or self-care (01) ==
LOC: CHSLAB 09:48
PROVIDERS: PCP Family Medicine; Visit Provider Family Medicine
DX: Z51.81 Encounter for therapeutic drug level monitoring (principal); Z79.01 Long term (current) use of anticoagulants
CPT/HCPCS: 36415; 85610

== ENCOUNTER 2023-06-30 13:07 | Emergency (ER) | payer MEDICARE, SELFPAY ==
[2023-06-30] VITALS (36 sets, daily range): BP systolic 159–248; BP diastolic 88–143; PULSE 67–99; RESP 15–54; TEMP 37.4–37.7; O2SAT 86–100
--- NOTE | ~2023-06-30 | CT_ITS ---
EXAMINATION: CT brain wo con DATE: 06/30/2023 14:10 INDICATION: Altered mental status, confusion and tremors TECHNIQUE: Computed tomography (CT) of the head was performed without intravenous contrast. Sagittal and coronal reconstructions were performed. The mA was adjusted according to patient size. Iterative reconstruction technique was employed. The dose-length product was 605.33 mGy-cm. COMPARISON: head CT dated 04/22/2022 FINDINGS: No acute intracranial hemorrhage, acute infarction or abnormal extra axial fluid collection. Small ol d lacunar infarct at the anterior limb of the left internal capsule. There is mild scattered white ma tter hypoattenuation consistent with chronic small vessel ischemic disease. Ventricles are normal an d symmetric. No mass/mass effect. Changes of bilateral intraocular lens replacement. The orbits, para nasal sinuses and mastoid air cells are normal. Intracranial calcified cerebral atherosclerosis is no nilsa. IMPRESSION: 1. Unchanged small old lacunar infarct at the anterior limb of the left internal capsule. No acute in tracranial process. 2. Mild scattered white matter hypoattenuation consistent with chronic small vessel ischemic disease. Reviewed, dictated and finalized at location A. IMPRESSION: 1. Unchanged small old lacunar infarct at the anterior limb of the left interna l capsule. No acute intracranial process. 2. Mild scattered white matter hypoattenuation consistent with chronic small ve ssel ischemic disease.
--- NOTE | ~2023-06-30 | CT_ITS ---
EXAMINATION: CT thoracic spine wo con DATE: 06/30/2023 14:10 INDICATION: Mid back pain. Tremors. TECHNIQUE: Computed tomography (CT) of the thoracic spine was performed without intravenous contrast. Automated exposure control and iterative reconstruction technique were employed. The dose-length pro duct was 585.88 mGy-cm. COMPARISON: Chest CT dated 05/26/2022 FINDINGS: Moderate thoracic kyphosis. No interval change in chronic anterior wedging with 20% anterior vertebra l body height loss at T7, T11 and T12 and minimal anterior wedging at T8, T9 and T10. No acute fractu res identified. There is severe disc height loss with prominent Modic type III sclerotic endplate jessica nges at L1-L2 with less severe degenerative endplate changes at T7-T8, T11-T12 and T12-L1. Moderate t o severe disc height loss at T9-T10 and T10-T11, moderate disc height loss at T6-T7 T8-T9 and mild di sc height loss of the more cephalad thoracic levels. 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 3 mm retrolisthesis of L1 on L2 with associated posterior disc osteophyte complex results in mild to moderate central canal stenosis at this level. A dditional disc bulges and/or small endplate osteophytes and hypertrophic change along the deep margin of the facet joints contribute to mild central canal stenosis from T7-T8 through T12-L1. There is al so multilevel neural foraminal stenosis bilaterally throughout the thoracic spine moderate neural for aminal stenosis bilaterally at L1-L2. Paravertebral soft tissues are unremarkable. Respiratory motion in the lungs with compressive atelectasis at the medial aspect of the bilateral lower lobes along si de the margins of a large hiatal hernia. No pleural effusion. Cholecystectomy clips at the gallbladde r fossa. IMPRESSION: 1. Unchanged moderate thoracic kyphosis with chronic mild anterior wedging of multiple vertebral bodi es in the lower half of the thoracic spine. No acute osseous abnormality. 2. Severe lower thoracic predominant spondylosis. 3. Large hiatal hernia. Reviewed, dictated and finalized at location A. IMPRESSION: 1. Unchanged moderate thoracic kyphosis with chronic mild anterior wedging of m ultiple vertebral bodies in the lower half of the thoracic spine. No acute osse ous abnormality. 2. Severe lower thoracic predominant spondylosis. 3. Large hiatal hernia.
--- NOTE | ~2023-06-30 | XR_ITS ---
Portable chest x-ray Comparison: 11/19/2022 Clinical History: Shortness of breath Findings: Lungs are clear, without focal consolidation or pleural effusion. Cardiomediastinal silho uette is stable. Probable large hiatal hernia, unchanged.. There is advanced degenerative change of t he bilateral intrarenal clavicular joints. Impression: Clear lungs. Large hiatal hernia, unchanged. Reviewed, dictated and finalized at location M. Impression: Clear lungs. Large hiatal hernia, unchanged.
--- NOTE | 2023-06-30 13:12 | ED.SOB ---
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 -- shaking. this improved after the patient received Versed 1 mg x 2. -- altered mental status unsure whether this is acute or chronic. Patient is confused. -- Shortness of breath. patient is saturating 100% on room air. She has a respiratory rate of 54. -- Anuric MD elicited complaint: shortness of breath Pertinent past history: congestive heart failure Onset (ago): day(s) ( started 3 4 days ago.) Timing: constant Exacerbating factors: nothing Relieving factors: nothing Known history of: congestive heart failure Associated symptoms: fever Treatment prior to arrival: oxygen Related Data Home Medications Medication Instructions Recorded Confirmed aspirin 81 mg tablet,delayed 81 mg PO DAILY 10/18/19 08/23/22 release (Ecotrin Low Strength) calcium carbonate 600 mg-vitamin 1 tablet PO BID 10/18/19 08/23/22 D3 20 mcg (800 unit) chewable tablet (Caltrate 600 plus D) omeprazole magnesium 20 mg 20 mg PO DAILY 10/18/19 08/23/22 tablet,delayed release (Prilosec OTC) vitamins A,C,B-bywm-mrotbr 4,296 1 cap PO BID 04/01/22 08/23/22 mcg-226 mg-90 mg capsule (PreserVision AREDS) allopurinol 100 mg tablet 100 mg PO DAILY 04/22/22 08/23/22 hydrochlorothiazide 12.5 mg capsule 12.5 mg PO DAILY 04/22/22 08/23/22 warfarin 3 mg tablet 3 mg PO DAILY 12/23/22 Allergies Allergy/AdvReac Type Severity Reaction Status Date / Time fentanyl Allergy Intermediate Unknown Verified 11/20/22 12:10 tramadol Allergy Intermediate Unknown Verified 11/20/22 12:10 adhesive Allergy Mild Unknown Verified 11/20/22 12:10 Sulfa (Sulfonamide Allergy Mild unknown Verified 11/20/22 12:10 Antibiotics) Sulfonamides Allergy Intermediate Unknown Uncoded 11/20/22 12:10 Review of Systems Review of Systems: All systems reviewed & are unremarkable except as noted in HPI and below Constitutional: Constitutional: Reports as per HPI, Reports no additional constitutional complaints and Reports weakness Eyes: Eyes: Reports as per HPI and Reports no additional eye complaints ENT: Reports system reviewed and no additional complaints, except as documented and Reports as per HPI Cardiovascular: Cardiovascular: Reports as per HPI and Reports no additional cardiovascular complaints Respiratory: Respiratory: Reports as per HPI, Reports no additional respiratory complaints, Reports cough and Reports dyspnea Gastrointestinal: Gastrointestinal: Reports as per HPI and Reports no additional gastrointestinal complaints Genitourinary: Comments: Patient has cystocele Musculoskeletal: Musculoskeletal: Reports no additional musculoskeletal complaints, Reports as per HPI and Reports back pain Comments: patient is complaining of mid back pain. Integumentary/Breasts: Skin/Breast: Reports system reviewed and no additional complaints, except as docu and Reports as per HPI Neurologic: Reports system reviewed and no additional complaints, except as documented, Reports as per HPI and Reports weakness Psychiatric: Psychiatric: Reports anxiety Endocrine: Endocrine: Reports no additional endocrine complaints and Reports as per HPI Hematologic/Lymphatic: Hematologic/Lymphatic: Reports no additional hematologic/lymphatic complaints and Reports as per HPI Allergic/Immunologic: Allergic/Immunologic: Reports no additional allergic/immunologic complaints and Reports as per HPI PMFSH Past Medical History Me
--- NOTE | 2023-06-30 13:20 | ECG_ITS ---
Measurements Intervals [place] Rate: 90 P: 61 SC: 158 QRS: 94 QRSD: 94 T: 80 QT: 356 QTc: 437 Interpretive Statements SINUS RHYTHM BORDERLINE RIGHT AXIS DEVIATION [QRS AXIS > 90] POSSIBLE ANTERIOR MYOCARDIAL INFARCTION , OF INDETERMINATE AGE [30 ms Q WAVE IN V3/V4, OR R < 0.2 mV IN V4] THE t WAVES ARE PEAKED, CONSIDER HYPERKALEMIA COMPARED TO ECG 11/19/2022 17:19:55 NO SIGNIFICANT CHANGES Electronically Signed On 06-30-2023 19:30:58 CDT by Tata Colon M.D.
--- NOTE | 2023-06-30 13:46 | PC.NURSE ---
On 06/30/23, the student, [sherron gastelum ], provided care and completed [facility] documentation on this patient. I have reviewed the student's documentation and agree with the findings.
[2023-06-30] MEDS: MIDAZOLAM HCL (*CRX) 2 MG/2 ML VIAL 1 MG IV PUSH ×2 (13:51→14:22)
[2023-06-30 13:53] LABS: Basophils Absolute Auto 0.03 K/mm3 (0.00-0.10); Basophils Percent Auto 0.3 % (0.0-1.0); Eosinophils Absolute Auto 0.02 K/mm3 (0.02-0.50); Eosinophils Percent Auto 0.2 % (1.0-6.0); Hematocrit 29.8 % (35.0-42.0); Hemoglobin 9.7 g/dL (11.7-13.8); Immature Granulocyte Absolute 0.06 K/mm3 (0.00-0.00); Immature Granulocyte Percent A 0.5 % (0.0-0.0); Lymphocytes Absolute Auto 1.05 K/mm3 (1.10-4.50); Lymphocytes Percent Auto 9.1 % (18.0-42.0); Mean Corpuscular HGB Conc 32.6 g/dL (32.0-36.0); Mean Corpuscular Hemoglobin 29.7 pg (27.0-31.0); Mean Corpuscular Volume 91.1 fL (78.0-102.0); Mean Platelet Volume 9.9 fl (9.2-11.8); Monocytes Absolute Auto 0.62 K/mm3 (0.10-0.90); Monocytes Percent Auto 5.4 % (2.0-11.0); Neutrophils Absolute Auto 9.8 K/mm3 (1.7-7.2); Neutrophils Percent Auto 84.5 % (50.0-70.0); Platelet Count Result 285 K/mm3 (150-420); Red Blood Count 3.27 M/mm3 (4.20-5.40); Red Cell Distribution Width 15.7 % (11.6-14.4); White Blood Count 11.6 K/mm3 (4.8-10.8)
[2023-06-30] MEDS: LABETALOL HCL INJ 100 MG/20 ML VIAL 10 MG IV PUSH ×2 (13:53→17:02)
[2023-06-30 13:54] LABS: Appearance Urine Clear (Clear); Bilirubin Urine Negative (Negative); Blood Urine Trace-Intact (Negative); Color Urine Light Yellow (Yellow); Glucose Urine UA Negative (Negative); Ketones Urine Negative (Negative); Leukocyte Esterase Ur Negative LEU/UL (Negative); Nitrate Urine Negative (Negative); Protein Urine 3+ (Negative); Urobilinogen Urine 0.2 mg/dL (0.2-1.0)
[2023-06-30 13:57] LABS: Add Urine Microscopic? YES
[2023-06-30 13:58] LABS: Bacteria Urine Trace /hpf; RBC Urine 0-2 /hpf (0-2); Squamous Epithelial Cell Urine Occasional /hpf (Few); WBC Urine 0-3 /hpf (0-3)
[2023-06-30 14:12] LABS: INR 1.3; Partial Thromboplastin Time 31.3 SEC (23.90-30.70); Prothrombin Time 13.5 Seconds (9.50-12.10)
[2023-06-30 14:15] LABS: Lactic Acid Reflex 2.6 mmol/L (0.4-2.0)
[2023-06-30 14:16] LABS: Alanine Aminotransferase 13 U/L (14-59); Albumin Level 3.6 g/dL (3.4-5.0); Alkaline Phosphatase 95 U/L (46-116); Anion Gap 18 mmol/L (8-16); Aspartate Amino Transferase 14 U/L (15-37); Bilirubin,Total 0.5 mg/dL (0.00-1.00); Blood Urea Nitrogen 70 mg/dL (7-18); Calcium 9.9 mg/dL (8.5-10.1); Carbon Dioxide 13 mmol/L (21-32); Chloride 107 mmol/L (98-108); Estimated CRCL calculation 5 ml/min; Estimated Glomerular Filt Rate 7; Glucose 112 mg/dL (70-99); NT Pro B Type Natriuretic Pept > 35000 pg/mL (0-450); Osmolality Calculated 307 mOsm/kg (285-295); Potassium 6.1 mmol/L (3.5-5.1); Sodium 138 mmol/L (136-145)
[2023-06-30 14:18] LABS: Lipase 143 U/L (16-77); Thyroid Stimulating Hormone 2.36 uIU/mL (0.36-3.74); Uric Acid 7.9 mg/dL (2.6-6.0)
[2023-06-30 14:20] LABS: Troponin I 114.9 ng/L (0.00-60.4)
[2023-06-30 14:28] LABS: Influenza A QL RT-PCR Negative (Negative); Influenza B QL RT-PCR Negative (Negative); SARS-CoV-2 RNA PCR Negative (Negative)
[2023-06-30 14:33] LABS: RSV RNA, RT-PCR Negative (Negative)
--- NOTE | 2023-06-30 14:43 | PC.NURSE ---
pt resting per cot. at bedside. lab attempting abg draw at this time
[2023-06-30 14:57] LABS: Base Excess ABG -6.3 mmol/L (0-2); HCO3 ABG 17.7 mmol/L (23-29); Oxygen Content ABG 13.3 %vol (16.0-22.0); Oxygen Saturation ABG 97.5 % (95-97); Oxyhemoglobin 96.8 % (94-100); PCO2 ABG 29.9 mmHg (35-45); Total Hemoglobin 9.6 g/dL (12.0-18.0); pH ABG 7.39 (7.35-7.45)
[2023-06-30 14:59] LABS: Device NASAL CANNULA; Modified Allen's Test Pass; Site Drawn RIGHT RADIAL
[2023-06-30] MEDS: hydrALAZINE HCL 20 MG/ML VIAL 10 MG IV PUSH (15:03)
[2023-06-30] MEDS: SODIUM CHLORIDE 0.9% IV 500 ML 999 ML IV CONT (15:22)
[2023-06-30] MEDS: SODIUM BICARBONATE 8.4% 50 MEQ/50 ML SYRINGE IV PUSH (15:24)
[2023-06-30] MEDS: DEXTROSE 50% 25 GM/50 ML SYRINGE IV PUSH (15:27)
[2023-06-30] MEDS: INSULIN HUMAN REGULAR (*BKC) 1,000 UNITS/10 ML VIAL 5 UNITS IV PUSH (15:30)
[2023-06-30 15:32] LABS: Glucose Point of Care 121 mg/dl (65-105)
[2023-06-30 16:51] LABS: Reflex Lactic Acid Yes or No Add Lactic
[2023-06-30] MEDS: SODIUM POLYSTYRENE SULFONONATE 15 GM/60 ML BTL 30 GM PO (17:02)
[2023-06-30] MEDS: FUROSEMIDE INJ 100 MG/10 ML VIAL 80 MG IV PUSH (17:03)
--- NOTE | 2023-06-30 17:04 | PC.NURSE ---
pt uncomfortable in bed, repeatedly repositioned in the bed and propped. call handley in reach
--- NOTE | 2023-06-30 18:58 | PC.NURSE ---
pt incontinent of stool. skin care given to pt. assisted to ems cot. pt alert and oriented, able to answer questions appropriately.
--- NOTE | 2023-07-06 12:25 | PC.NURSE ---
FINAL BLOOD CULTURE REPORT: NO GROWTH AFTER 5 DAYS, NO FURTHER ACTION OR TREATMENT NEEDED.
== END 2023-06-30 19:00 | disposition short-term general hospital (02) ==
PROVIDERS: Emergency Provider Internal Medicine Critical Care Medicine; PCP Family Medicine
DX: N17.9 Acute kidney failure, unspecified (principal); E87.5 Hyperkalemia; R79.89 Other specified abnormal findings of blood chemistry; I16.0 Hypertensive urgency; R06.02 Shortness of breath; I13.0 Hypertensive heart and chronic kidney disease with heart failure and stage 1 through stage 4 chronic kidney disease, or unspecified chronic kidney disease; I50.30 Unspecified diastolic (congestive) heart failure; N18.30 Chronic kidney disease, stage 3 unspecified; I25.10 Atherosclerotic heart disease of native coronary artery without angina pectoris; M10.9 Gout, unspecified; E78.5 Hyperlipidemia, unspecified; E03.9 Hypothyroidism, unspecified; G89.29 Other chronic pain; Z20.822 Contact with and (suspected) exposure to COVID-19; Z79.82 Long term (current) use of aspirin; Z79.01 Long term (current) use of anticoagulants; Z79.891 Long term (current) use of opiate analgesic
CPT/HCPCS: 36415; 36600; 70450; 71045; 72128; 80053; 81001; 82805; 82948; 83605; 83690; 83880; 84443; 84484; 84550; 85025; 85610; 85730; 87040; 87637; 93005; 96361; 96374; 96375; 96376; 99285; A9270; J0360; J1815; J1940; J2250; J7040